=== PATIENT | male | born 1945 | race Caucasian/White ===

== ENCOUNTER → 2018-06-05 14:09 | Outpatient (POV) | payer SELFPAY | PROVIDERS: Visit Provider Dermatology | DX: Z00.00 Encounter for general adult medical examination without abnormal findings (principal) ==

== ENCOUNTER 2019-01-14 15:21 | Observation (INO) | payer MEDICARE, SELFPAY ==
[2019-01-14] VITALS (7 sets, daily range): BP systolic 88–116; BP diastolic 50–79; PULSE 55–87; RESP 15–24; TEMP 36.5–36.8; O2SAT 96–98; BMI 25.8; BMI 27.4
--- NOTE | 2019-01-14 15:40 | PC.NURSE ---
pt stating he did not pass out I just has a weak spell
--- NOTE | 2019-01-14 15:45 | HMH.EDGENADL ---
ED Disposition Clinical Impression: Renal insufficiency Syncope Qualifiers: Syncope type: unspecified Qualified Code(s): R55 - Syncope and collapse Atrial fibrillation Qualifiers: Atrial fibrillation type: unspecified Qualified Code(s): I48.91 - Unspecified atrial fibrillation Disposition: Admitted as Observation Condition on Discharge: Good Instructions: DI for Syncope in Adults (Fainting), DI for Syncope in Children (Fainting) Referrals: Francine Enrique APRN [Primary Care Provider] - - Critical Care Critical Care Time: No Attestation: On , the high probability of a clinically significant, sudden or life threatening deterioration of the following system(s) required my full and direct attention, intervention and personal management. The time I documented below is in addition to time spent performing reported procedures but includes the following listed in this critical care notation. Medical Decision Making - Medical Records Medical records reviewed: Yes: I reviewed the patient's medical records. - Ron Inquiry Pt receiving controlled substance: No Vital Signs: 01/14/19 15:23 01/14/19 15:37 01/14/19 16:17 Temperature 97.7 F Temperature Source Oral Pulse Rate [Left Radial] 57 L 55 L 56 L Respiratory Rate 16 Blood Pressure [Right Arm] 103/55 L 88/50 L 106/63 L Blood Pressure Mean [Right Arm] 71 62 77 Blood Pressure Source [Right Arm] Automatic Cuff Blood Pressure Position [Right Arm] Sitting 02 Sat by Pulse Oximetry 98 97 96 Oxygen Delivery Method Room Air 01/14/19 18:26 Temperature Temperature Source Pulse Rate [Left Radial] 87 Respiratory Rate Blood Pressure [Right Arm] 110/79 Blood Pressure Mean [Right Arm] 89 Blood Pressure Source [Right Arm] Blood Pressure Position [Right Arm] 02 Sat by Pulse Oximetry 96 Oxygen Delivery Method - Lab Data Lab results reviewed: Yes: I reviewed the patient's lab results. Lab Results 01/14/19 15:44: WBC 4.8, RBC 3.39 L, Hgb 11.0 L, Hct 31.6 L, MCV 93.4, MCH 32.4 H, MCHC 34.7, RDW 13.5, Plt Count 158, MPV 9.2, Neut % (Auto) 79.3, Lymph % (Auto) 14.0, [place] % (Auto) 5.7, Eos % (Auto) 0.8, Baso % (Auto) 0.3, Neut # (Auto) 3.8, Lymph # (Auto) 0.7, [place] # (Auto) 0.3, Eos # (Auto) 0.0, Baso # (Auto) 0.0 01/14/19 15:44: Sodium 141, Potassium 3.5, Chloride 106, Carbon Dioxide 23, Anion Gap 12.5, BUN 27 H, Creatinine 2.61 H, Estimated Creat Clear 27, Estimated GFR 24 L, Est GFR ( Amer) 29 L, Glucose 108 H, Calcium 8.2 L, Total Bilirubin 0.5, AST 33, ALT 26, Alkaline Phosphatase 108, Troponin I < 0.02, Total Protein 7.1, Albumin 3.5, Globulin 3.6 H, Albumin/Globulin Ratio 1.0 L, Plasma/Serum Alcohol 0 01/14/19 15:44: PT 11.4, INR 1.10 01/14/19 15:44: B-Natriuretic Peptide 605 H Result diagrams: 01/14/19 15:44 01/14/19 15:44 Orders (Tests/Meds): ED MEDICATIONS Discontinued Medications Generic Name Dose Route Start Last Admin Trade Name Freq PRN Reason Stop Dose Admin Sodium Chloride 500 mls @ 500 mls/hr 01/14/19 15:45 01/14/19 15:46 Sod Chlor 0.9% 500ml Bag IV 01/14/19 16:44 500 mls/hr .Q1H WILLI Administration Tetanus/Reduced Diphtheria/Acell Pertussis 0.5 ml 01/14/19 19:05 Adacel Tdap 0.5ml Syringe IM 01/14/19 19:06 .ONCE ONE ORDERS Category Date Time Status CT head/brain wo con Stat Cat Scan 01/14/19 15:42 Ordered Chest XR 2 view (NOT portable) [XR chest 2V] Stat Exams 01/14/19 15:30 Ordered Drug Screen,Urine Stat Lab 01/14/19 15:43 Ordered - ECG Data Tracing #1 I reviewed this ECG and interpreted as documented below: Normal Sinus Rhythm: No (atrial fib 56, new onset, no stemi) Medical Decision Narrative: pt refused xrays, admit d/w Dr Bustillo, regarding new onset atrial fib, renal insufficiency, syncope General Adult HPI - General Chief complaint: Syncope Stated complaint: syncope Time Seen by Provider: 06/03/19 15:45 Mode of Arrival: EMS Source of Information: Patient
--- NOTE | 2019-01-14 15:48 | ED_ITS ---
ED Disposition Clinical Impression: Renal insufficiency Syncope Qualifiers: Syncope type: unspecified Qualified Code(s): R55 - Syncope and collapse Atrial fibrillation Qualifiers: Atrial fibrillation type: unspecified Qualified Code(s): I48.91 - Unspecified atrial fibrillation Disposition: Admitted as Observation Condition on Discharge: Good Instructions: DI for Syncope in Adults (Fainting), DI for Syncope in Children (Fainting) Referrals: Francine Enrique APRN [Primary Care Provider] - - Critical Care Critical Care Time: No Attestation: On , the high probability of a clinically significant, sudden or life threatening deterioration of the following system(s) required my full and direct attention, intervention and personal management. The time I documented below is in addition to time spent performing reported procedures but includes the following listed in this critical care notation. Medical Decision Making - Medical Records Medical records reviewed: Yes: I reviewed the patient's medical records. - Ron Inquiry Pt receiving controlled substance: No Vital Signs: 01/14/19 15:23 01/14/19 15:37 01/14/19 16:17 Temperature 97.7 F Temperature Source Oral Pulse Rate [Left Radial] 57 L 55 L 56 L Respiratory Rate 16 Blood Pressure [Right Arm] 103/55 L 88/50 L 106/63 L Blood Pressure Mean [Right Arm] 71 62 77 Blood Pressure Source [Right Arm] Automatic Cuff Blood Pressure Position [Right Arm] Sitting 02 Sat by Pulse Oximetry 98 97 96 Oxygen Delivery Method Room Air 01/14/19 18:26 Temperature Temperature Source Pulse Rate [Left Radial] 87 Respiratory Rate Blood Pressure [Right Arm] 110/79 Blood Pressure Mean [Right Arm] 89 Blood Pressure Source [Right Arm] Blood Pressure Position [Right Arm] 02 Sat by Pulse Oximetry 96 Oxygen Delivery Method - Lab Data Lab results reviewed: Yes: I reviewed the patient's lab results. Lab Results 01/14/19 15:44: WBC 4.8, RBC 3.39 L, Hgb 11.0 L, Hct 31.6 L, MCV 93.4, MCH 32.4 H, MCHC 34.7, RDW 13.5, Plt Count 158, MPV 9.2, Neut % (Auto) 79.3, Lymph % (Auto) 14.0, [place] % (Auto) 5.7, Eos % (Auto) 0.8, Baso % (Auto) 0.3, Neut # (Auto) 3.8, Lymph # (Auto) 0.7, [place] # (Auto) 0.3, Eos # (Auto) 0.0, Baso # (Auto) 0.0 01/14/19 15:44: Sodium 141, Potassium 3.5, Chloride 106, Carbon Dioxide 23, Anion Gap 12.5, BUN 27 H, Creatinine 2.61 H, Estimated Creat Clear 27, Estimated GFR 24 L, Est GFR ( Amer) 29 L, Glucose 108 H, Calcium 8.2 L, Total Bilirubin 0.5, AST 33, ALT 26, Alkaline Phosphatase 108, Troponin I < 0.02, Total Protein 7.1, Albumin 3.5, Globulin 3.6 H, Albumin/Globulin Ratio 1.0 L, Plasma/Serum Alcohol 0 01/14/19 15:44: PT 11.4, INR 1.10 01/14/19 15:44: B-Natriuretic Peptide 605 H Result diagrams: 01/14/19 15:44 01/14/19 15:44 Orders (Tests/Meds): ED MEDICATIONS Discontinued Medications Generic Name Dose Route Start Last Admin Trade Name Freq PRN Reason Stop Dose Admin Sodium Chloride 500 mls @ 500 mls/hr 01/14/19 15:45 01/14/19 15:46 Sod Chlor 0.9% 500ml Bag IV 01/14/19 16:44 500 mls/hr .Q1H WILLI Administration Te
[2019-01-14 15:55] LABS: Basophils % 0.3 % (0.1-2.0); Eosinophils % 0.8 % (0.1-12.0); Hematocrit 31.6 % (42.0-52.0); Lymphocytes # 0.7 K/mm3 (0.7-4.5); Mean Corpuscular HGB Conc 34.7 g/dL (31.8-35.4); Mean Corpuscular Hemoglobin 32.4 pg (27.0-31.2); Mean Corpuscular Volume 93.4 fl (80-94); Mean Platelet Volume 9.2 fl (7.4-10.4); Monocytes # 0.3 K/mm3 (0.1-1.0); Monocytes % 5.7 % (1.7-9.3); Neutrophils # 3.8 K/mm3 (1.8-7.8); Neutrophils % 79.3 % (37.0-80.0); Platelet Count 158 K/mm3 (142-424); Red Blood Count 3.39 M/mm3 (4.60-6.20); Red Cell Distribution Width 13.5 % (11.5-17.5); White Blood Count 4.8 K/mm3 (4.8-10.8)
[2019-01-14 16:02] LABS: Prothrombin Time 11.4 seconds (9.4-11.8)
[2019-01-14 16:09] LABS: Troponin I < 0.02 ng/ml (0.00-0.06)
--- NOTE | 2019-01-14 16:12 | PC.NURSE ---
to ct per stretcher
[2019-01-14 16:13] LABS: Anion Gap 12.5 mEq/L (5-15); Aspartate Amino Transferase 33 U/L (15-37); Bilirubin,Total 0.5 mg/dL (0.2-1.0); Blood Urea Nitrogen 27 mg/dL (7-18); Calcium 8.2 mg/dL (8.5-10.1); Carbon Dioxide 23 mmol/L (21.0-32.0); Chloride 106 mmol/L (98-107); Creatinine Clearance Estimated 27 mL/min (50-200); Creatinine,Serum 2.61 mg/dL (0.70-1.30); Estimated Glomerular Filt Rate 24 ml/min (>60); GFR (African American) 29 ML/MIN (>60); Glucose 108 mg/dL (74-106); Potassium 3.5 mmoL/L (3.5-5.1); Sodium 141 mmol/L (136-145); Total Protein,Serum 7.1 gm/dL (6.4-8.2)
[2019-01-14 16:14] LABS: Albumin Level 3.5 gm/dL (3.4-5.0); Alkaline Phosphatase 108 U/L (46-116); Ethyl Alcohol 0 mg/dL (0-99); Globulin 3.6 gm/dl (1.3-3.2)
--- NOTE | 2019-01-14 16:14 | PC.NURSE ---
pt refused ct at present
[2019-01-14 16:19] LABS: Alanine Aminotransferase 26 U/L (12-78)
--- NOTE | 2019-01-14 18:00 | PC.NURSE ---
pt resting quietly
--- NOTE | 2019-01-14 18:58 | PC.NURSE ---
pt resting quietly at bedside
--- NOTE | 2019-01-14 19:58 | XR_ITS ---
XR chest 2V HISTORY: Shortness of air, new onset atrial fibrillation. ITS.REASON: SOA/new onset afib ORDERING PHYSICIAN: Kin Bustillo MD PATIENT AGE: 73 years COMPARISON: None FINDINGS: There is cardiomegaly without failure. Increased markings are present in the right lower lobe atelectasis or infiltrate. The remaining lungs are clear. There is mild wedging involving the T12 vertebral body age indeterminate. 2.5 cm gallstone. IMPRESSION: Cardiomegaly Right lower lobe infiltrate or atelectatic change. Cholelithiasis Mild wedging T12 age indeterminate
--- NOTE | 2019-01-14 20:19 | HMH.HP ---
*Admission Date: 01/14/19 *Chief complaint: Frequent falls/weakness *History of present illness: 73-year-old white male with history of hypertension, hyperlipidemia and chronic anxiety disorder who sees a nurse practitioner clinic in [place] and follows with them every month to get my Gilmer who presented to the emergency department this afternoon after falling several times today. Over the past 3 to 4 weeks he is fallen 4 or 5 times and sustained several abrasions and lacerations to his arms. He reports that he has not had any heart testing or labs done until this morning at this provider's office-received a tetanus shot today and was sent home after labs. No medication changes have been done recently. He was at [facility] in [place] today and had a syncopal episode. Requested to be brought here instead of the [facility] because we like this better. He and his note that he has been increasingly frail, problems with walking, problems with stiffness and frequent falls. He denies any history of ever being told he has atrial fibrillation or kidney disease. In the emergency department he was found to be relatively hypotensive, had elevated creatinine at 2.6, have atrial fibrillation with rate of 56 and was admitted to hospital for further diagnostic testing. [facility] History I have reviewed the patient's past medical history: Yes Medical History: Reports:: Anxiety, BPH, Depression, Hyperlipidemia, Hypertension *Have you ever received a pneumonia vaccine?: Yes *Have you received a flu vaccine this season?: Yes Other Surgeries: Yes: No Previous Surgery - *Social History Educational Level: Completed Grade School Smoking Status: Former smoker Alcohol Intake: never *Occupational Status:: other *Travel in the last 8 weeks: None - Psychiatric History Expresses thoughts of harming self/others: None Suicide Plan Description: No Plan Family Hx:: Non-contributory Review of Systems - Review of Systems Review of systems:: pertinent systems reviewed and negative unless documented below - Constitutional Reports fatigue, Reports malaise, Reports weakness, Denies anorexia, Denies body ache(s) - Eyes Denies blind spots, Denies blurry vision - ENT Reports poor balance, Reports dizziness, Denies abnormal hearing - *Cardiovascular Reports shortness of breath, Denies chest pain, Denies chest pain at rest, Denies irregular heart rhythm, Denies leg swelling - *Respiratory Reports shortness of breath with activity, Denies change in phlegm color, Denies chest congestion, Denies excessive phlegm production - *Gastrointestinal Denies abdominal pain, Denies belching, Denies change in stools, Denies coffee ground vomit, Denies difficulty swallowing - *Genitourinary Denies difficulty urinating - *Musculoskeletal Reports abnormal walking, Reports limited joint movement - *Neurologic Reports abnormal walking, Reports dizziness, Reports frequent falls, Denies loss of vision, Denies memory loss - Psychiatric Denies abnormal sleep pattern Meds Home Medications Medication Instructions Recorded Confirmed Type ALPRAZolam [Alprazolam 0.25mg 0.25 mg PO TID 01/14/19 01/14/19 History Tab] Aspirin [Aspir 81] 81 mg PO DAILY 01/14/19 01/14/19 History Cetirizine HCl [Zyrtec] 10 mg PO DAILY 01/14/19 01/14/19 History Gemfibrozil 600 mg PO DAILY 01/14/19 01/14/19 History Levothyroxine Sodium 75 mcg PO DAILY 01/14/19 01/14/19 History [Levothyroxine 75mcg (0.075mg) Tab] Lisinopril [Lisinopril 10mg Tab] 10 mg PO DAILY 01/14/19 01/14/19 History PARoxetine HCl [Paxil 20mg Tablet] 20 mg PO DAILY 01/14/19 01/14/19 History Tamsulosin HCl [Flomax 0.4mg 0.4 mg PO HS 01/14/19 01/14/19 History capsule] Verapamil HCl [Verapamil ER] 240 mg PO DAILY 01/14/19 01/14/19 History Allergies Allergy/AdvReac Type Severity Reaction Status Date / Time No Known Allergies Allergy Verified 01/14/19 15:29 Exam Vital signs and Labs for Last 24
--- NOTE | 2019-01-14 20:22 | P.HP_ITS ---
*Admission Date: 01/14/19 *Chief complaint: Frequent falls/weakness *History of present illness: 73-year-old white male with history of hypertension, hyperlipidemia and chronic anxiety disorder who sees a nurse practitioner clinic in [place] and follows with them every month to get my Gilmer who presented to the emergency department this afternoon after falling several times today. Over the past 3 to 4 weeks he is fallen 4 or 5 times and sustained several abrasions and lacerations to his arms. He reports that he has not had any heart testing or labs done until this morning at this provider's office-received a tetanus shot today and was sent home after labs. No medication changes have been done recently. He was at [facility] in [place] today and had a syncopal episode. Requested to be brought here instead of the [facility] because we like this better. He and his note that he has been increasingly frail, problems with walking, problems with stiffness and frequent falls. He denies any history of ever being told he has atrial fibrillation or kidney disease. In the emergency department he was found to be relatively hypotensive, had elevated creatinine at 2.6, have atrial fibrillation with rate of 56 and was admitted to hospital for further diagnostic testing. [facility] History I have reviewed the patient's past medical history: Yes Medical History: Reports:: Anxiety, BPH, Depression, Hyperlipidemia, Hypertension *Have you ever received a pneumonia vaccine?: Yes *Have you received a flu vaccine this season?: Yes Other Surgeries: Yes: No Previous Surgery - *Social History Educational Level: Completed Grade School Smoking Status: Former smoker Alcohol Intake: never *Occupational Status:: other *Travel in the last 8 weeks: None - Psychiatric History Expresses thoughts of harming self/others: None Suicide Plan Description: No Plan Family Hx:: Non-contributory Review of Systems - Review of Systems Review of systems:: pertinent systems reviewed and negative unless documented below - Constitutional Reports fatigue, Reports malaise, Reports weakness, Denies anorexia, Denies body ache(s) - Eyes Denies blind spots, Denies blurry vision - ENT Reports poor balance, Reports dizziness, Denies abnormal hearing - *Cardiovascular Reports shortness of breath, Denies chest pain, Denies chest pain at rest, Denies irregular heart rhythm, Denies leg swelling - *Respiratory Reports shortness of breath with activity, Denies change in phlegm color, Denies chest congestion, Denies excessive phlegm production - *Gastrointestinal Denies abdominal pain, Denies belching, Denies change in stools, Denies coffee ground vomit, Denies difficulty swallowing - *Genitourinary Denies difficulty urinating - *Musculoskeletal Reports abnormal walking, Reports limited joint movement - *Neurologic Reports abnormal walking, Reports dizziness, Reports frequent falls, Denies loss of vision, Denies memory loss - Psychiatric Denies abnormal sleep pattern Meds Home Medications Medication Instructions Recorded Confirmed Type ALPRAZolam [Alprazolam 0.25mg 0.25 mg PO TID 01/14/19 01/14/19 History Tab] Aspirin [Aspir 81] 81 mg PO DAILY 01/14/19 01/14/19 History Cetirizine HCl [Zyrtec] 10 mg PO DAILY 01/14/19 01/14/19 History Gemfibrozil 600 mg PO DAILY 01/14/19 01/14/19 History Levothyroxine Sodium 75 mcg PO DAILY 01/14/19 01/14/19 History [Levothyroxine 75mcg (0.075mg) Tab]
--- NOTE | 2019-01-14 20:39 | PC.NURSE ---
LATE ENTRY; @ 1948 ARRIVED TO FLOOR , PER BRAD, FROM ED.
[2019-01-14 23:27] LABS: Troponin I < 0.02 ng/ml (0.00-0.06)
[2019-01-15] VITALS: BP 145/78; PULSE 70; PULSE 77; RESP 18; TEMP 36.5; O2SAT 97
[2019-01-15 02:06] LABS: Troponin I < 0.02 ng/ml (0.00-0.06)
--- NOTE | 2019-01-15 03:24 | PC.NURSE ---
A&OX4. FINE TREMOR NOTED. BRUISE NOTED ON LEFT SIDE OF LOWER BACK. RIGHT FOREARM ABRASION, CLEANED SITE, DSG APPLIED. ABRASION NOTED TO LEFT ELBOW BANDAGE APPLIED. PT. HAS NOT C/O PAIN, N/V/D, DIZZINESS, OR SOB. PT. EDUCATED PRIVATE INVESTIGATOR GAETANO, PT. VERBALIZED UNDERSTANDING. PT. SPOUSE AT BEDSIDE. PT. CURRENTLY RESTING IN BED WITH EYES CLOSED. IV PATENT AND INFUSING SHOWING NO S/S OF INFILTRATION. VSS. WILL CONTINUE TO MONITOR.
[2019-01-15 04:00] VITALS: BP 166/91; PULSE 70; PULSE 79; RESP 20; TEMP 36.5; O2SAT 99
[2019-01-15 04:01] LABS: Microscopic, Urine URINE MICROSCOPIC (MICROSCOPIC)
[2019-01-15 04:05] LABS: Appearance,Urine CLEAR (Clear); Bilirubin,Urine Negative (Negative); Blood, Urine Negative (Negative); Color,Urine YELLOW (Yellow); Glucose,Urine (UA) Negative (Negative); Ketones,Urine Negative (Negative); Leukocyte Esterase,Urine Negative (Negative); Nitrate,Urine Negative (Negative); Protein,Urine Negative (Negative); Specific Gravity, Urine 1.015 (1.005-1.030); Urobilinogen,Urine 0.2 EU/dl (0.2)
[2019-01-15 05:08] VITALS: BMI 27.1
[2019-01-15 05:43] LABS: Bacteria,Urine Trace /lpf; Squamous Epithelial Cell,Urine Occasional #/hpf (0-5); WBC,Urine Occasional #/hpf (0-3)
--- NOTE | 2019-01-15 07:25 | PC.NURSE ---
REPORT GIVEN TO Richard CHVAEZ
--- NOTE | 2019-01-15 07:28 | HMH.ACPN2 ---
Internal Medicine - PN: Subj *Date: 01/15/19 *Time: 09:47 Interval history: Patient remained hemodynamically stable overnight. Blood pressure little bit more elevated but asymptomatic this morning. Patient is fixated on his Obs status and cost of medications. Counseled him to have his machine operator hop picker his medications that we may administer home meds at no cost to him. Echo performed this morning along with labs obtained, results pending. Patient did well overnight tolerating regular diet. States he is feeling better today and is adamant he does not have Parkinson's. Walked him this morning with no shuffling to his gait however he does have masked face ease. No resting tremor appreciated. Exam Vital signs and Labs for Last 24 Hours: Temp Pulse Resp BP Pulse Ox 97.7 F 79 20 166/91 H 99 01/15/19 04:00 01/15/19 04:00 01/15/19 04:00 01/15/19 04:00 01/15/19 04:00 Laboratory Results - last 24 hr 01/14/19 15:44: WBC 4.8, RBC 3.39 L, Hgb 11.0 L, Hct 31.6 L, MCV 93.4, MCH 32.4 H, MCHC 34.7, RDW 13.5, Plt Count 158, MPV 9.2, Neut % (Auto) 79.3, Lymph % (Auto) 14.0, [place] % (Auto) 5.7, Eos % (Auto) 0.8, Baso % (Auto) 0.3, Neut # (Auto) 3.8, Lymph # (Auto) 0.7, [place] # (Auto) 0.3, Eos # (Auto) 0.0, Baso # (Auto) 0.0 01/14/19 15:44: Sodium 141, Potassium 3.5, Chloride 106, Carbon Dioxide 23, Anion Gap 12.5, BUN 27 H, Creatinine 2.61 H, Estimated Creat Clear 27, Estimated GFR 24 L, Est GFR ( Amer) 29 L, Glucose 108 H, Calcium 8.2 L, Total Bilirubin 0.5, AST 33, ALT 26, Alkaline Phosphatase 108, Troponin I < 0.02, Total Protein 7.1, Albumin 3.5, Globulin 3.6 H, Albumin/Globulin Ratio 1.0 L, Plasma/Serum Alcohol 0 01/14/19 15:44: PT 11.4, INR 1.10 01/14/19 15:44: B-Natriuretic Peptide 605 H 01/14/19 23:05: Troponin I < 0.02 01/15/19 01:42: Troponin I < 0.02 01/15/19 03:05: Urine Color Yellow, Urine Appearance Clear, Urine pH 7.0, Ur Specific [place] 1.015, Urine Protein Negative, Urine Glucose (UA) Negative, Urine Ketones Negative, Urine Blood Negative, Urine Nitrate Negative, Urine Bilirubin Negative, Urine Urobilinogen 0.2, Ur Leukocyte Esterase Negative, Urine WBC Occasional, Ur Squamous Epith Cells Occasional, Urine Bacteria Trace I & O for Last 24 hours: Intake & Output 01/12/19 01/13/19 01/14/19 01/15/19 23:59 23:59 23:59 23:59 Intake Total 341 / 341 Output Total 200 / 200 600 / 600 Balance -200 / -200 -259 / -259 Weight 79.435 kg 78.557 kg Narrative: Patient appears his stated age, is in no acute respiratory distress. Vital signs noted. Patient has masked facies-and his confirms this has been more prominent over the past 3 to 4 years. Did not appreciate resting tremor this morning. When he is assisted getting up out of the bed he has a small step gait, though steady Oropharynx moist, no JVD. Lungs have good air movement. Heart rate irregularly irregular. Soft flow murmur. No gallops. Abdomen soft. No peripheral edema or clubbing. Assessment and Plan (1) New onset atrial fibrillation Current visit: Yes Status: Acute Category: Medical Code(s): I48.91 - Unspecified atrial fibrillation (2) Elevated brain natriuretic peptide (BNP) level Current visit: Yes Status: Acute Category: Medical Code(s): R79.89 - Other specified abnormal findings of blood chemistry (3) Parkinsonism Current visit: Yes Status: Acute Category: Medical Code(s): G20 - Parkinson's disease (4) Renal insufficiency Current visit: Yes Status: Acute Category: Medical Code(s): N28.9 - Disorder of kidney and ureter, unspecified - Assessment and plan all Dx Assessment and Plan for all problems:: Renal function improving with hydration. Echocardiogram performed but results pending. Patient continues to require admission for work-up of CHF, atrial fibrillation, renal dysfunction. Instructed patient to have family machine operator hop picker medications and bring them to him. Other management pending
--- NOTE | 2019-01-15 07:49 | P.CONPHA_ITS ---
[facility] Pharmacy VTE Monitoring - Patient Demographics Admission date: 01/14/19 Report Date: 01/15/19 Time: 07:49 Allergies/Adverse Reactions: Patient Allergies acetaminophen Adverse Reaction (Verified 01/15/19 00:21) Gastrointestinal Upset Height: 1.7 m Weight: 78.557 kg Patient Problems: Current Active Problems (Updated 01/14/19 @ 20:26 by Kin Bustillo MD) Syncope (Acute) Atrial fibrillation (Acute) Renal insufficiency (Acute) New onset atrial fibrillation (Acute) Elevated brain natriuretic peptide (BNP) level (Acute) Parkinsonism (Acute) - VTE Risk Labs: VTE Related Lab Results Hgb 11.0 g/dL (14.1-18.0) L 01/14/19 15:44 Hct 31.6 % (42.0-52.0) L 01/14/19 15:44 Plt Count 158 K/mm3 (142-424) 01/14/19 15:44 PT 11.4 seconds (9.4-11.8) 01/14/19 15:44 INR 1.10 (0.9-1.1) 01/14/19 15:44 BUN 27 mg/dL (7-18) H 01/14/19 15:44 Creatinine 2.61 mg/dL (0.70-1.30) H 01/14/19 15:44 Estimated Creat Clear 27 mL/min (50-200) 01/14/19 15:44 Was VTE Risk Assessment Performed: Yes VTE Score: 2 VTE Risk Level: Very Low Risk - Prophylaxis VTE Prophylaxis Ordered?: Yes Types of VTE Prophylaxis: TEDS Knee High Location of Applied Device: Bilateral Lower Extremeties - VTE Diagnosis Confirmed Treatment or plan recommended: Continue Current Treatment
[2019-01-15 08:00] VITALS: BP 146/81; PULSE 80; PULSE 86; RESP 16; TEMP 36.9; O2SAT 98
[2019-01-15 08:47] LABS: Anion Gap 16.2 mEq/L (5-15); Blood Urea Nitrogen 23 mg/dL (7-18); Calcium 8.4 mg/dL (8.5-10.1); Carbon Dioxide 22 mmol/L (21.0-32.0); Chloride 107 mmol/L (98-107); Creatinine Clearance Estimated 36 mL/min (50-200); Creatinine,Serum 2.01 mg/dL (0.70-1.30); Estimated Glomerular Filt Rate 33 ml/min (>60); GFR (African American) 40 ML/MIN (>60); Glucose 98 mg/dL (74-106); Potassium 3.2 mmoL/L (3.5-5.1); Sodium 142 mmol/L (136-145)
--- NOTE | 2019-01-15 09:00 | US_ITS ---
US Kidney CLINICAL INDICATION: Acute renal failure ITS.REASON: RED ORDERING PHYSICIAN: Kin Bustillo MD PATIENT AGE: 73 years Comparison: None FINDINGS: The right kidney is 10 x 5 x 7 cm. The left kidney is 11 x 5 x 7 cm. No hydronephrosis. There is some minimal thinning of the renal cortex but unremarkable echogenicity. No perinephric fluid collection. Incidental note is made of cholelithiasis with a thickened gallbladder wall. The common duct is normal at 4 mm. IMPRESSION: 1. No hydronephrosis. Mild renal cortical thinning. 2. Cholelithiasis with mildly thickened gallbladder wall
[2019-01-15 09:17] LABS: Thyroid Stimulating Hormone 4.03 uIU/ml (0.358-3.740)
[2019-01-15 09:26] LABS: Basophils % 0.4 % (0.1-2.0); Eosinophils # 0.1 K/mm3 (0.0-0.4); Eosinophils % 1.6 % (0.1-12.0); Hematocrit 32.7 % (42.0-52.0); Hemoglobin 11.7 g/dL (14.1-18.0); Lymphocytes # 0.7 K/mm3 (0.7-4.5); Lymphocytes % 18.7 % (10-50); Mean Corpuscular HGB Conc 35.7 g/dL (31.8-35.4); Mean Corpuscular Volume 92.6 fl (80-94); Mean Platelet Volume 7.6 fl (7.4-10.4); Monocytes # 0.2 K/mm3 (0.1-1.0); Monocytes % 5.4 % (1.7-9.3); Neutrophils # 2.6 K/mm3 (1.8-7.8); Neutrophils % 73.8 % (37.0-80.0); Platelet Count 135 K/mm3 (142-424); Red Blood Count 3.53 M/mm3 (4.60-6.20); Red Cell Distribution Width 13.3 % (11.5-17.5); White Blood Count 3.6 K/mm3 (4.8-10.8)
--- NOTE | 2019-01-15 09:27 | HMH.PHAINT ---
MEDICATION RECONCILIATION COMPLETED ON PATIENT USING EXTERNAL FILL HISTORY FROM PHARMACY. -JAMES SADLER, ISAIASD
--- NOTE | 2019-01-15 09:37 | HMH.PTEV ---
Physical Therapy Evaluation Rehab PT IP Evaluation Start: 01/14/19 20:18 Freq: ONCE Status: Active Protocol: Document 01/15/19 09:34 ANTON (Rec: 01/15/19 09:36 [email or web address] [id number]) Subjective/History History History This is the initial IP PT evaluation for Bolivar Dent. Pt is a 73 y/o wm admitted to [facility] for falls,syncpoe, a-fib. Subjective Subjective Pt reports he feels good today and wishes to go home Rehab PT IP Eval Objective Appearance Patient Behavior Appropriate Patient Orientation Person,Place,Time Difficulty following instructions none Speech Pattern Clear,Appropriate,Soft-Spoken Ambulation Patient Able to Ambulate Yes Ambulation Observation IP General Gait Pattern Observation Wide Based Gait,Shuffling Step Ambulation Distance (feet) 40 Ambulation Assistive Device None Balance Ability to Arise Able, uses arms to help Sitting Balance Steady, safe Standing Balance Steady, wide stance Dynamic Sitting Balance Ability Normal Dynamic Standing Balance Ability Fair Transfers Bed Transfer Ability Independent Chair Transfer Ability Independent Sit to Stand Bed Transfer Ability Independent Sit to Stand Chair Transfer Ability Independent ROM All Extremities PT ROM Status WFL MMT All Extremities PT MMT WFL Rehab PT IP prob,goals,plan Problems Date of Evaluation: 01/15/19 Rehab Potential Rehab Potential Innapropriate for Skilled Therapy Equipment Needs Assistive Devices None / NA Discharge Plan PT Discharge Plan dc pt to home once medically stable G -code Required Yes Eval Complexity Eval Charge Codes 80904 - Low Complexity G Codes PT Current Status Mobility PT Current Status Modifier CI-At least 1% but less than 20% impaired, limited or restricted PT Goal Status Mobility PT Goal Status Modifer CI-At least 1% but less than 20% impaired, limited or restricted PHYSICIAN CERTIFICATION: I certify the specified therapy services for Bolivar Dent are required, authorized, and reviewed every 30 days.
--- NOTE | 2019-01-15 10:27 | HMH.OTEV ---
OT Inpatient Evaluation Rehab OT IP Evaluation Start: 01/14/19 20:18 Freq: ONCE Status: Complete Protocol: Document 01/15/19 09:36 TFRY (Rec: 01/15/19 09:39 TFRY [id number]) Rehab OT IP Assessment Subjective History This is a 73 year old male that was admitted to the hospital after passing out in [facility]. Patient reports living at home with his independently prior to admission. Objective Upper Extremity Gross ROM WFL Bed Mobility bed mobility - supine/sit Assist Level Independent Transfer Training Sit/Stand/Step Transfer Assist Level Contact Guard/Hand Hold Chair Transfer Ability Contact Guard/Hand Hold Chair Transfer Technique Sit to/from Ambulatory Chair Transfer Assistive Devices None Self care skills uses utensils to feed self Feeding Ability Independent Lower Body Dressing Ability Standby Assistance Upper Body Dressing Ability Independent decrease in endurance No Rehab OT IP prob,goals,plan Problems Date of Evaluation: 01/15/19 Rehab Potential Rehab Potential Innapropriate for Skilled Therapy Discharge Plan OT Discharge Plan Patient to return home with . Patient at his baseline . Eval Complexity Eval Charge Codes 84386 - Low Complexity G Codes G -code Required Yes OT Current Status Self Care OT Current Status Modifier CI-At least 1% but less than 20% impaired, limited or restricted OT Goal Status Self Care OT Goal Status Modifier CI-At least 1% but less than 20% impaired, limited or restricted PHYSICIAN CERTIFICATION: I certify the specified therapy services for Bolivar Dent are required, authorized, and reviewed every 30 days.
[2019-01-15 12:00] VITALS: PULSE 90
--- NOTE | 2019-01-15 15:23 | HMH.CNCARD ---
History of Present Illness Consult date: 01/15/19 Requesting physician: Kin Bustillo Consult reason: atrial fibrillation, congestive heart failure Chief complaint: SOA Additional Medical History:: 1. Atrial fibrillation, newly diagnosed, 01/2019 A. Poor candidate for anticoagulation despite elevated chads score due to recent history of recurrent falling 2. Cardiomyopathy by echocardiogram, 01/2019 3. Moderate to severe MR by echocardiogram 01/2019 4. Congestive heart failure, 01/2019 5. Hypertension 6. Hyperlipidemia 7. Hypothyroidism, on replacement 8. Chronic anxiety A. chronic Xanax use 9. Parkinson's disease History of present illness: 73-year-old white male with history of hypertension, hyperlipidemia and chronic anxiety disorder who sees a nurse practitioner clinic in [place] and follows with them every month to get my Gilmer who presented to the emergency department this afternoon after falling several times today. Over the past 3 to 4 weeks he is fallen 4 or 5 times and sustained several abrasions and lacerations to his arms. He reports that he has not had any heart testing or labs done until this morning at this provider's office-received a tetanus shot today and was sent home after labs. No medication changes have been done recently. He was at [facility] in [place] today and had a syncopal episode. Requested to be brought here instead of the [facility] because we like this better. He and his note that he has been increasingly frail, problems with walking, problems with stiffness and frequent falls. He denies any history of ever being told he has atrial fibrillation or kidney disease. In the emergency department he was found to be relatively hypotensive, had elevated creatinine at 2.6, have atrial fibrillation with rate of 56 and was admitted to hospital for further diagnostic testing The above per Dr. Bustillo Patient is somewhat of a difficult historian and states his main reason for being here is shortness of breath and recent falls. He denies being a diabetic or history of smoking. EKG is atrial fibrillation with controlled ventricular response with possible inferior and lateral infarcts. Echocardiogram today shows ejection fraction of 40-45% with at least moderate mitral regurgitation, left atrial and left ventricular enlargement. Cardiology consulted for new onset A. fib, cardiomyopathy and congestive heart failure. Patient was on diltiazem therapy upon admission, this has been discontinued. [facility] History Medical History: Reports:: Anxiety, BPH, Depression, Hyperlipidemia, Hypertension Denies:: Cancer, Diabetes Mellitus Type 1, Diabetes Mellitus Type 2, MRSA *Have you ever received a pneumonia vaccine?: No *Have you received a flu vaccine this season?: No Other Surgeries: Yes: No Previous Surgery, Other (VASECTOMY) Amputation: No Fractures: No - *Social History Educational Level: Completed High School Smoking Status: Never smoker Alcohol Intake: never *Occupational Status:: retired Housing: house Household Members: spouse *Travel in the last 8 weeks: None - Psychiatric History Expresses thoughts of harming self/others: None Suicide Plan Description: No Plan Pschychiatric History:: Reports:: Anxiety, Depression Family Hx:: Hypertension Meds Home Medications Medication Instructions Recorded Confirmed Type Aspirin [Aspir 81] 81 mg PO DAILY 01/14/19 01/15/19 History Gemfibrozil 600 mg PO BID 01/14/19 01/15/19 History Levothyroxine Sodium 75 mcg PO DAILY 01/14/19 01/14/19 History [Levothyroxine 75mcg (0.075mg) Tab] Lisinopril [Lisinopril 10mg Tab] 10 mg PO DAILY 01/14/19 01/15/19 History PARoxetine HCl [Paxil 20mg Tablet] 20 mg PO DAILY 01/14/19 01/14/19 History Tamsulosin HCl [Flomax 0.4mg 0.4 mg PO HS 01/14/19 01/14/19 History capsule] Verapamil HCl [Verapamil ER] 240 mg PO BID 01/14/19 01/15/19 History ALPRAZolam [Xanax 0.5mg tab] 0.5 mg PO BID 01/15/19 0
[2019-01-15 16:00] VITALS: BP 128/72; PULSE 82; PULSE 90; RESP 18; TEMP 36.7; O2SAT 96
--- NOTE | 2019-01-15 16:30 | PC.NURSE ---
CA Round done. Ice water given, trash taken out. Family at bedside.
--- NOTE | 2019-01-15 19:58 | CA_ITS ---
PROCEDURE: 2-D M-mode and color Doppler study INDICATIONS FOR THE TEST: Chest pain COPD Heart Murmur Tobacco Smoking Palpitations Fatigue Syncope Edema Hypertension+Diabetes Mellitus Rheumatic Fever SOB CAMPOS Obesity Hyperlipidemia+ Family History HD Additional History AFIB PATIENT INFORMATION HEIGHT:67 WEIGHT:165 GENDER: Male B/P:113/67 2-D/M-MODE INTERPRETATION: 2-D MEASUREMENTS OBSERVED VALUES IN CMS Right Ventricular Dimension (RVDd) 3.2 Interventricular Septum (Thickness)(IVsd) 1.5 Left Ventricular Internal Dimensions(LVIDd) 5.1 Left Ventricular Posterior Wall (Thickness)(LVPWd) 1.2 Aortic Root 3.8 Aortic Cusp Separation 2.2 Left Atrial Dimensions (LAD) 4.3 2D 1. Left atrium is moderately enlarged, left ventricle is normal size, mild concentric left ventricular hypertrophy, borderline left ventricular systolic function, visually estimated ejection fraction 45% with no obvious regional wall motion abnormality, endocardial surfaces are poorly visualized. 2. The right atrium and right ventricle are mildly enlarged with normal contractility. 3. The aortic valve is thickened and calcified leaflet continue to display mobility. 4. The mitral and tricuspid valve leaflets are minimally thickened. 5. The pulmonic valve is poorly visualized. 6. No significant pericardial effusion noted. DOPPLER INTERROGATION: Doppler interrogation of the aortic, mitral and tricuspid valvular presence of moderate mitral, mild aortic and mild tricuspid regurgitation, tricuspid regurgitation jet velocity is inadequate for calculation of the left ventricle is pressure, diastolic parameters are inconclusive. There is tall T-wave with restrictive filling pattern suggestive of increased left ventricular end-diastolic pressure. CONCLUSION: 1. Moderately enlarged left atrium, normal left ventricular size, mild concentric left ventricular hypertrophy, borderline left ventricular systolic function, visually estimated ejection fraction 45% with no obvious regional wall motion abnormality, endocardial surfaces are poorly visualized, Doppler evidence of raised left ventricular end-diastolic pressure. 2. Mild aortic, moderate mitral and mild tricuspid regurgitation 3. No significant pericardial effusion noted.
[2019-01-15 20:00] VITALS: BP 162/90; PULSE 100; PULSE 94; RESP 17; TEMP 36.9; O2SAT 96
[2019-01-16] VITALS (24 sets, daily range): BP systolic 130–190; BP diastolic 72–102; PULSE 70–90; RESP 16–20; TEMP 36.3–37.1; O2SAT 96–100; BMI 25.9
--- NOTE | 2019-01-16 02:40 | PC.NURSE ---
A&OX3, SPEECH IS CLEAR AND APPROPRIATE BUT MILD IMPAIRMENT NOTED WITH COMPREHENSION OF TEACHINGS AT TIMES AND PT IS DELAYED WITH SPEECH/CONVERSATION, THIS IS PT'S BASELINE. ATTEMPTED TO OBTAIN CONSENT FOR CARDIAC CATH SCHEDULED FOR 01/16, UNABLE TO ALLOW PT TO SIGN CONSENT R/T PT'S LACK OF KNOWLEDGE OF PROCEDURE RISK AND BENEFITS. PT STATED I WANT TO TALK THE DOCTOR MORE TOMORROW. LUNG CLEAR T/O AUSCULTATION, TOLERATED RA WELL. ABDOMEN NONDISTENDED BOWEL SOUNDS IN ALL QUADS, SOFT AND NONTENDER PER PALPATION. PULSES +2, CAP REFILL <3SEC. MILD TREMORS NOTED IN BILAT HANDS ON ASSESSMENT. UNSTEADY GAIT, ASSIST X1 WITH ADLS THIS SHIFT, TOLERATED WELL. PT DID RECEIVE A BATH AND BILAT WRISTS AND GROIN AREAS CLIPPED FOR ANTICIPATION OF CARDIAC CATH. NSR WITH FIRST DEGREE NOTED PER OFFICE MACHINES WIRER. VSS. WILL CONTINUE TO MONITOR.
--- NOTE | 2019-01-16 07:04 | SW/DCPLANNER ---
WENT IN WITH DR ROBLES TO MAKE ROUNDS ON : PATIENT STATED HE WANTED TO GO HOME AND IT WAS HARD FOR HIM AND HIS TO UNDERSTAND THAT HE WAS IN AN OBSERVATION BED AND IN ORDER FOR HIM NOT TO BE CHARGED FOR MEDS...HIS LEFT TO GO FRAUD EXAMINER A PRESCRIPTION IN [place] WITH ANTICIPATION HE WAS GOING TO DISCHARGE LATER IN THE DAY.. PATIENT ENDED UP STAYING AND IS SCHEDULED FOR A HEART CATH TODAY...DISCHARGE PLAN IS FOR HIM TO RETURN HOME AFTER HE HAS BEEN MEDICALLY CLEARED...ANY DISCHARGE PLANNING THAT IS ORDERED WILL BE SET UP IF THERE IS A NEED...
--- NOTE | 2019-01-16 07:11 | IR_ITS ---
CARDIAC CATHETERIZATION DATE OF CATHETERIZATION:01/16/2019 2:40 PM PROCEDURES: 1. Left heart catheterization 2. Left ventriculogram 3. Selective coronary angiogram 4. Catheter placement in the ascending aorta 5. Ascending aortogram 6. Catheter placement transverse aorta 7. Transverse aortography 8. Catheter placement in the descending aorta 9. Ascending aorta and abdominal aortogram INDICATION FOR TEST: 1. Syncope 2. Abnormal echocardiogram 3. Left ventricular dysfunction 4. Ascending aortic dissection 5. 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 COMPLICATIONS: None ESTIMATED BLOOD LOSS: Less than 10 ml. TECHNIQUE: One percent lidocaine used to anesthetize the right anterior aspect of the wrist. The right radial artery was accessed via the Seldinger technique. A 6 Taj[place] sheath was placed in the right radial artery. 2.5 mg of verapamil, 800 mcg of nitroglycerin, 1mg Lidocaine and 5000 U Heparin were given through the arterial sheath. The trap catheter was initially placed in the descending aorta. Angiography was performed and there was abnormal blood flow which actually appeared to be traveling in a retrograde manner. I was concerned a dissection was present therefore the catheter was pulled back and a 6 [place] pigtail catheter was placed in the ascending aorta where aortography was performed. The descending aorta was dilated and aneurysmal therefore the catheter was pulled back into the transverse aorta were transverse aortography was performed. Because there appeared to be some retrograde flow in the aorta I was concerned about an aortocaval fistula therefore the pigtail catheter was placed in the descending aorta and ascending aortography was performed. The trap catheter was used to perform left heart catheterization left ventriculogram and selective coronary angiography. At the end of the procedure the apparatus was removed the sheath was removed good hemostasis was achieved using TR banding patient transferred the postop holding area in stable condition ANGIOGRAPHIC RESULTS: 1. The left main artery has an ostial 20% stenosis 2. The left anterior descending artery has mild proximal luminal irregularities with mid vessel tendon 20% stenoses 3. The circumflex artery is nondominant yet still large giving rise to multiple obtuse marginal arteries all of which have 10-20% stenoses 4. The right coronary artery is a large dominant vessel and has proximal and mid vessel 20 and 30% stenoses with mild vascular ectasia throughout the entire vessel. 5. The JAMES ventriculogram reveals reduced at 45% 6. The left ventricular end-diastolic pressure 25 mmHg 7. The ascending aorta is aneurysmal with no evidence of dissection. 8. The transverse aorta gives rise to the brachiocephalic artery left common carotid artery and left subclavian artery. The transverse aorta and the 3 main branches are all dilated with no angiographic evidence of dissection 9. The descending aorta is dilated with no evidence of dissection is rise to the celiac artery. Bilateral renal arteries are singular with mild 20% stenoses. The distal abdominal aorta tapers to normal caliber with no evidence of dissection IMPRESSION: 1. Nonflow limiting coronary artery disease as described above 2. Used ejection fraction most consistent with hypertensive cardiomyopathy 3. Elevated LVEDP most consistent with hypertensive heart disease 4. 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 Treatment of hypertensive heart and vascular disease 2. Control of hypertension 3. Patient will do well wi
--- NOTE | 2019-01-16 07:13 | PC.NURSE ---
REPORT GIVEN TO Katie WESLEY
[2019-01-16 07:36] LABS: Basophils % 0.4 % (0.1-2.0); Eosinophils # 0.1 K/mm3 (0.0-0.4); Eosinophils % 1.5 % (0.1-12.0); Hematocrit 40.1 % (42.0-52.0); Lymphocytes # 1.1 K/mm3 (0.7-4.5); Lymphocytes % 23.1 % (10-50); Mean Corpuscular HGB Conc 32.5 g/dL (31.8-35.4); Mean Corpuscular Hemoglobin 32.2 pg (27.0-31.2); Mean Corpuscular Volume 99.3 fl (80-94); Mean Platelet Volume 8.1 fl (7.4-10.4); Monocytes # 0.3 K/mm3 (0.1-1.0); Monocytes % 6.2 % (1.7-9.3); Neutrophils # 3.3 K/mm3 (1.8-7.8); Neutrophils % 68.8 % (37.0-80.0); Platelet Count 153 K/mm3 (142-424); Red Blood Count 4.03 M/mm3 (4.60-6.20); Red Cell Distribution Width 13.6 % (11.5-17.5); White Blood Count 4.8 K/mm3 (4.8-10.8)
[2019-01-16 07:39] LABS: Anion Gap 15.9 mEq/L (5-15); Blood Urea Nitrogen 22 mg/dL (7-18); Calcium 8.8 mg/dL (8.5-10.1); Carbon Dioxide 23 mmol/L (21.0-32.0); Chloride 103 mmol/L (98-107); Creatinine Clearance Estimated 47 mL/min (50-200); Creatinine,Serum 1.49 mg/dL (0.70-1.30); Estimated Glomerular Filt Rate 46 ml/min (>60); GFR (African American) 56 ML/MIN (>60); Glucose 85 mg/dL (74-106); Sodium 139 mmol/L (136-145)
[2019-01-16 07:54] LABS: Potassium 2.9 mmoL/L (3.5-5.1)
--- NOTE | 2019-01-16 08:38 | HMH.ACPN2 ---
Internal Medicine - PN: Subj *Date: 01/16/19 *Time: 08:38 Interval history: Patient did well overnight, no chest pain. Has been up and around, feels much less dizzy. Good urine output. Labs reviewed. Exam Vital signs and Labs for Last 24 Hours: Temp Pulse Resp BP Pulse Ox 97.8 F 83 18 165/84 H 96 01/16/19 04:00 01/16/19 04:00 01/16/19 04:00 01/16/19 04:00 01/16/19 04:00 Laboratory Results - last 24 hr 01/15/19 03:05: Urine Eosinophils Rare 01/15/19 08:13: WBC 3.6 L, RBC 3.53 L, Hgb 11.7 L, Hct 32.7 L, MCV 92.6, MCH 33.0 H, MCHC 35.7 H, RDW 13.3, Plt Count 135 L, MPV 7.6, Neut % (Auto) 73.8, Lymph % (Auto) 18.7, [place] % (Auto) 5.4, Eos % (Auto) 1.6, Baso % (Auto) 0.4, Neut # (Auto) 2.6, Lymph # (Auto) 0.7, [place] # (Auto) 0.2, Eos # (Auto) 0.1, Baso # (Auto) 0.0 01/15/19 08:13: Sodium 142, Potassium 3.2 L, Chloride 107, Carbon Dioxide 22, Anion Gap 16.2 H, BUN 23 H, Creatinine 2.01 H D, Estimated Creat Clear 36, Estimated GFR 33 L, Est GFR ( Amer) 40 L D, Glucose 98, Calcium 8.4 L 01/15/19 08:13: TSH 4.03 H 01/16/19 07:15: WBC 4.8 D, RBC 4.03 L, Hgb 13.0 L D, Hct 40.1 L, MCV 99.3 H, MCH 32.2 H, MCHC 32.5, RDW 13.6, Plt Count 153, MPV 8.1, Neut % (Auto) 68.8, Lymph % (Auto) 23.1, [place] % (Auto) 6.2, Eos % (Auto) 1.5, Baso % (Auto) 0.4, Neut # (Auto) 3.3, Lymph # (Auto) 1.1, [place] # (Auto) 0.3, Eos # (Auto) 0.1, Baso # (Auto) 0.0 01/16/19 07:15: Sodium 139, Potassium 2.9 L*, Chloride 103, Carbon Dioxide 23, Anion Gap 15.9 H, BUN 22 H, Creatinine 1.49 H D, Estimated Creat Clear 47, Estimated GFR 46 L, Est GFR ( Amer) 56 L D, Glucose 85, Calcium 8.8 I & O for Last 24 hours: Intake & Output 01/13/19 01/14/19 01/15/19 01/16/19 11:59 11:59 11:59 11:59 Intake Total 341 / 341 723 / 723 Output Total 800 / 800 1325 / 1325 Balance -459 / -459 -602 / -602 Weight 173 lb 3 oz 165 lb 9 oz Narrative: Patient is awake, alert, heart rate irregular but rate controlled. Lungs are clear. Abdomen soft, minimal edema. No change in neurologic rigidity. Assessment and Plan (1) New onset atrial fibrillation Current visit: Yes Status: Acute Category: Medical Code(s): I48.91 - Unspecified atrial fibrillation (2) Elevated brain natriuretic peptide (BNP) level Current visit: Yes Status: Acute Category: Medical Code(s): R79.89 - Other specified abnormal findings of blood chemistry (3) Parkinsonism Current visit: Yes Status: Acute Category: Medical Code(s): G20 - Parkinson's disease (4) Renal insufficiency Current visit: Yes Status: Acute Category: Medical Code(s): N28.9 - Disorder of kidney and ureter, unspecified Slightly improving. Patient's previous provider had not done renal labs in the last 3 to 4 years so we have no baseline. 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 Medicine adjustment as noted. Possible discharge home tomorrow with low-dose beta-blockers. (6) Mitral regurgitation Current visit: Yes Status: Acute Category: Medical Code(s): I34.0 - Nonrheumatic mitral (valve) insufficiency (7) Hypokalemia Current visit: Yes Status: Acute Category: Medical Code(s): E87.6 - Hypokalemia Replace cautiously, watch tomorrow
[2019-01-16 10:09] LABS: Chol/HDL Ratio 5.6 (1-3.5); Cholesterol 151 mg/dL (140-200); HDL Cholesterol 27 mg/dL (27-67); LDL Cholesterol 106 mg/dL (0-130); Triglycerides 88 mg/dL (30-200); VLDL Cholesterol 18 mg/dL (0-40)
--- NOTE | 2019-01-16 10:09 | HMH.PNCARD ---
Subjective Date: 01/16/19 Time: 09:30 Principal diagnosis: afib, chf Interval history: This is a 73-year-old white gentleman who was admitted to the hospital after falling multiple times over the past 3 to 4 weeks. The patient did sustain several abrasions and lacerations. When the patient was admitted to the hospital he was found to be in atrial fibrillation and had an acute kidney injury with a creatinine of 2.6. His echocardiogram revealed an ejection fraction of 45% with moderate mitral regurgitation. Cardiology was consulted due to the atrial fibrillation, cardiomyopathy and congestive heart failure. Diltiazem has been discontinued due to his cardiomyopathy. He has been started on carvedilol which he is tolerating well. This morning he denies any chest pain or pressure. He denies any shortness of breath or edema. He denies any fever, chills, nausea, vomiting, diarrhea, PND or orthopnea. The patient is scheduled to undergo left cardiac catheterization today due to his new onset cardiomyopathy to make sure that this is not ischemically mediated. Exam Vital signs and Labs for Last 24 Hours: Temp Pulse Resp BP Pulse Ox 97.4 F L 83 16 182/94 H 98 01/16/19 08:00 01/16/19 08:00 01/16/19 08:00 01/16/19 08:00 01/16/19 08:00 Laboratory Results - last 24 hr 01/15/19 03:05: Urine Eosinophils Rare 01/16/19 07:15: WBC 4.8 D, RBC 4.03 L, Hgb 13.0 L D, Hct 40.1 L, MCV 99.3 H, MCH 32.2 H, MCHC 32.5, RDW 13.6, Plt Count 153, MPV 8.1, Neut % (Auto) 68.8, Lymph % (Auto) 23.1, [place] % (Auto) 6.2, Eos % (Auto) 1.5, Baso % (Auto) 0.4, Neut # (Auto) 3.3, Lymph # (Auto) 1.1, [place] # (Auto) 0.3, Eos # (Auto) 0.1, Baso # (Auto) 0.0 01/16/19 07:15: Sodium 139, Potassium 2.9 L*, Chloride 103, Carbon Dioxide 23, Anion Gap 15.9 H, BUN 22 H, Creatinine 1.49 H D, Estimated Creat Clear 47, Estimated GFR 46 L, Est GFR ( Amer) 56 L D, Glucose 85, Calcium 8.8 I & O for Last 24 hours: Intake & Output 01/13/19 01/14/19 01/15/19 01/16/19 23:59 23:59 23:59 23:59 Intake Total 341 / 341 723 / 723 Output Total 200 / 200 825 / 1175 1100 / 1100 Balance -200 / -200 -484 / -834 -377 / -377 Weight 175 lb 2 oz 173 lb 3 oz 165 lb 9 oz Narrative: His telemetry strip shows atrial fibrillation with a rate of 89. Echocardiogram shows: CONCLUSION: 1. Moderately enlarged left atrium, normal left ventricular size, mild concentric left ventricular hypertrophy, borderline left ventricular systolic function, visually estimated ejection fraction 45% with no obvious regional wall motion abnormality, endocardial surfaces are poorly visualized, Doppler evidence of raised left ventricular end-diastolic pressure. 2. Mild aortic, moderate mitral and mild tricuspid regurgitation 3. No significant pericardial effusion noted. - *Routine HEENT Exam Head: Present: normocephalic, atraumatic Eye: Present: EOMI, PERRL ENT: Present: mucous membranes moist - *Routine Neck Exam Present: supple, full ROM. Absent: JVD, carotid bruit, lymphadenopathy - *Routine Respiratory Exam Present: decreased breath sounds, CTA bilaterally - *Routine Cardiovascular Exam Present: Normal S1, Normal S2, murmur, irregularly irregular - *Routine Abdominal Exam Present: soft, normoactive bowel sounds. Absent: tenderness, distended - *Routine Extremities Exam Present: full ROM, pulses intact, normal capillary refill. Absent: cyanosis, clubbing, edema - *Routine Skin Exam Present: intact, warm. Absent: erythema, rash - *Routine Neurological Exam Present: alert, oriented X3, CN II-XII intact. 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
--- NOTE | 2019-01-16 13:10 | DIET.NUTRFU ---
nutritional assessment completed by student radha under my supervision. Written and verbal teaching on low sodium, high potassium foods.
--- NOTE | 2019-01-16 19:14 | PC.NURSE ---
report given to brianne
[2019-01-17] VITALS: BP 146/90; PULSE 70; PULSE 80; RESP 16; TEMP 37.1; O2SAT 97
[2019-01-17 04:00] VITALS: BP 156/89; PULSE 80; PULSE 85; RESP 18; TEMP 37.1; O2SAT 97
--- NOTE | 2019-01-17 04:36 | PC.NURSE ---
pt has rested well this shift. Pt is A&Ox4, with delayed speech, this is pts baseline. Heart Cath site is covered with a 2x2 and tegaderm, CDI. Pt. as been to bathroom multiple times w/o c/o dizziness. VSS. will cont. to monitor.
[2019-01-17 05:43] VITALS: BMI 25.9
[2019-01-17 07:51] VITALS: BP 148/92; PULSE 93; RESP 17; TEMP 36.8; O2SAT 100
[2019-01-17 07:53] LABS: Anion Gap 17.8 mEq/L (5-15); Blood Urea Nitrogen 21 mg/dL (7-18); Calcium 8.4 mg/dL (8.5-10.1); Carbon Dioxide 20 mmol/L (21.0-32.0); Chloride 103 mmol/L (98-107); Creatinine Clearance Estimated 60 mL/min (50-200); Creatinine,Serum 1.16 mg/dL (0.70-1.30); Estimated Glomerular Filt Rate 62 ml/min (>60); GFR (African American) 75 ML/MIN (>60); Glucose 84 mg/dL (74-106); Potassium 3.8 mmoL/L (3.5-5.1); Sodium 137 mmol/L (136-145)
[2019-01-17 08:00] VITALS: PULSE 100
--- NOTE | 2019-01-17 09:00 | HMH.DCSUM ---
General - General Admission date:: 01/14/19 Discharge date: 01/17/19 HPI HPI: 73-year-old white male with history of hypertension, hyperlipidemia and chronic anxiety disorder who sees a nurse practitioner clinic in [place] and follows with them every month to get my Gilmer who presented to the emergency department this afternoon after falling several times today. Over the past 3 to 4 weeks he is fallen 4 or 5 times and sustained several abrasions and lacerations to his arms. He reports that he has not had any heart testing or labs done until this morning at this provider's office-received a tetanus shot today and was sent home after labs. No medication changes have been done recently. He was at [facility] in [place] today and had a syncopal episode. Requested to be brought here instead of the [facility] because we like this better. He and his note that he has been increasingly frail, problems with walking, problems with stiffness and frequent falls. He denies any history of ever being told he has atrial fibrillation or kidney disease. In the emergency department he was found to be relatively hypotensive, had elevated creatinine at 2.6, have atrial fibrillation with rate of 56 and was admitted to hospital for further diagnostic testing. Hospital Course Hospital Course: Patient was admitted to acute care and telemetry was placed. He was rehydrated with IVF's and creatinine returned to normal. Cardiology was consulted who ordered echocardiogram. He was found to have mild-moderate valve regurgitations with reduced EF 45%. He was taken for C which showed normal coronaries with confirmed systolic heart failure. Beta blockers were initiated which he has tolerated well. He remains in atrial fib with controlled rate. He was placed on aspirin but anticoagulants were not initiated d/t his increased risk of falls. Exam revealed Parkison's Disease and sinemet was initiated. He reports stiffness has improved and he is ambulating without dizziness or shortness of breath. He feels well today and desires to go home. Discharge home on sinemet and coreg. Continue aspirin. See med rec for complete list. FU with Dr. Bustillo in [place] in 5 days. Objective Vital signs: Temp Pulse Resp BP Pulse Ox 98.3 F 100 H 17 148/92 H 100 01/17/19 07:51 01/17/19 08:00 01/17/19 07:51 01/17/19 07:51 01/17/19 07:51 Narrative: Alert and oriented x3. Flat affect. Rate and rhythm irregular. No LE edema. Lung sounds clear and equal. Abdomen soft and nontender. Right radial cath site unremarkable. Pulses 2+ bilaterally. Results Labs on day of discharge: Labs from last 24 hours 01/17/19 01/16/19 06:43 07:15 Sodium 137 Potassium 3.8 D Chloride 103 Carbon Dioxide 20 L Anion Gap 17.8 H BUN 21 H Creatinine 1.16 D Estimated Creat Clear 60 Estimated GFR 62 Est GFR ( Amer) 75 D Glucose 84 Calcium 8.4 L Triglycerides 88 Cholesterol 151 LDL Cholesterol 106 VLDL Cholesterol 18 HDL Cholesterol 27 Cholesterol/HDL Ratio 5.6 H DS: Diagnosis - Discharge Diagnosis (1) Cardiomyopathy Status: Acute (2) Systolic congestive heart failure due to valvular disease Status: Acute (3) New onset atrial fibrillation Status: Acute (4) Elevated brain natriuretic peptide (BNP) level Status: Acute (5) Parkinsonism Status: Acute (6) Renal insufficiency Status: Acute (7) Mitral regurgitation Status: Acute (8) Hypokalemia Status: Acute Discharge Plan - Patient Discharge Instructions ACTIVITY: Continue current activity DIET: continue same diet Patient Instructions: DI for Syncope in Adults (Fainting), DI for Heart Failure, DI for Cardiac Catheterization, DI for Atrial Fibrillation, DI for Surgical Site Infection, High-Potassium Diet, Low-Sodium Diet - Follow up Plan Follow up with: Kin Bustillo MD [Staff Physician] -
--- NOTE | 2019-01-17 09:03 | P.DS_ITS ---
General - General Admission date:: 01/14/19 Discharge date: 01/17/19 HPI HPI: 73-year-old white male with history of hypertension, hyperlipidemia and chronic anxiety disorder who sees a nurse practitioner clinic in [place] and follows with them every month to get my Gilmer who presented to the emergency department this afternoon after falling several times today. Over the past 3 to 4 weeks he is fallen 4 or 5 times and sustained several abrasions and lacerations to his arms. He reports that he has not had any heart testing or labs done until this morning at this provider's office-received a tetanus shot today and was sent home after labs. No medication changes have been done recently. He was at [facility] in [place] today and had a syncopal episode. Requested to be brought here instead of the [facility] because we like this better. He and his note that he has been increasingly frail, problems with walking, problems with stiffness and frequent falls. He denies any history of ever being told he has atrial fibrillation or kidney disease. In the emergency department he was found to be relatively hypotensive, had elevated creatinine at 2.6, have atrial fibrillation with rate of 56 and was admitted to hospital for further diagnostic testing. Hospital Course Hospital Course: Patient was admitted to acute care and telemetry was placed. He was rehydrated with IVF's and creatinine returned to normal. Cardiology was consulted who ordered echocardiogram. He was found to have mild-moderate valve regurgitations with reduced EF 45%. He was taken for C which showed normal coronaries with confirmed systolic heart failure. Beta blockers were initiated which he has tolerated well. He remains in atrial fib with controlled rate. He was placed on aspirin but anticoagulants were not initiated d/t his increased risk of falls. Exam revealed Parkison's Disease and sinemet was initiated. He reports stiffness has improved and he is ambulating without dizziness or shortness of b reath. He feels well today and desires to go home. Discharge home on sinemet and coreg. Continue aspirin. See med rec for complete list. FU with Dr. Bustillo in [place] in 5 days. Objective Vital signs: Temp Pulse Resp BP Pulse Ox 98.3 F 100 H 17 148/92 H 100 01/17/19 07:51 01/17/19 08:00 01/17/19 07:51 01/17/19 07:51 01/17/19 07:51 Narrative: Alert and oriented x3. Flat affect. Rate and rhythm irregular. No LE edema. Lung sounds clear and equal. Abdomen soft and nontender. Right radial cath site unremarkable. Pulses 2+ bilaterally. Results Labs on day of discharge: Labs from last 24 hours 01/17/19 01/16/19 06:43 07:15 Sodium 137 Potassium 3.8 D Chloride 103 Carbon Dioxide 20 L Anion Gap 17.8 H BUN 21 H Creatinine 1.16 D Estimated Creat Clear 60 Estimated GFR 62 Est GFR ( Amer) 75 D Glucose 84 Calcium 8.4 L Triglycerides 88 Cholesterol 151 LDL Cholesterol 106 VLDL Cholesterol 18 HDL Cholesterol 27 Cholesterol/HDL Ratio 5.6 H DS: Diagnosis - Discharge Diagnosis (1) Cardiomyopathy Status: Acute (2) Systolic congestive heart failure due to valvular disease Status: Acute (3) New onset atrial fibrillation
--- NOTE | 2019-01-17 09:52 | PC.NURSE ---
pt educated on discharge teaching and post cath care. medications reviewed. upon medication teaching luis angel galvin stated a change to continue taking lisinopril that was d/c per brandon. pt was informed of this and educated. dressing changed to right elbow
--- NOTE | 2019-01-17 09:54 | HMH.PNCARD ---
Subjective Date: 01/17/19 Time: 09:00 Principal diagnosis: cardiomyopathy Interval history: This is a 73-year-old white gentleman who was admitted to the hospital after having multiple falls over the last several weeks. The patient was found to be in atrial fibrillation as well as having an acute kidney injury. The patient echocardiogram showed some cardiomyopathy with moderate mitral regurgitation. He did undergo left cardiac catheterization yesterday which showed mild nonocclusive coronary artery disease, mild renal artery stenosis and mild dilatation of his aorta. The patient's ejection fraction was 45% his LV EDP was also elevated. The patient would benefit from beta-blockers and FRANKY inhibitors. This morning he denies any chest pain, pressure, shortness of breath or edema. He denies any fevers, chills, nausea, vomiting, diarrhea, PND or orthopnea. Exam Vital signs and Labs for Last 24 Hours: Temp Pulse Resp BP Pulse Ox 98.3 F 100 H 17 148/92 H 100 01/17/19 07:51 01/17/19 08:00 01/17/19 07:51 01/17/19 07:51 01/17/19 07:51 Laboratory Results - last 24 hr 01/16/19 07:15: Triglycerides 88, Cholesterol 151, LDL Cholesterol 106, VLDL Cholesterol 18, HDL Cholesterol 27, Cholesterol/HDL Ratio 5.6 H 01/17/19 06:43: Sodium 137, Potassium 3.8 D, Chloride 103, Carbon Dioxide 20 L, Anion Gap 17.8 H, BUN 21 H, Creatinine 1.16 D, Estimated Creat Clear 60, Estimated GFR 62, Est GFR ( Amer) 75 D, Glucose 84, Calcium 8.4 L I & O for Last 24 hours: Intake & Output 01/14/19 01/15/19 01/16/19 01/17/19 23:59 23:59 23:59 23:59 Intake Total 341 / 341 1203 / 1203 480 / 480 Output Total 200 / 200 825 / 1175 1800 / 1800 250 / 250 Balance -200 / -200 -484 / -834 -597 / -597 230 / 230 Weight 175 lb 2 oz 173 lb 3 oz 165 lb 9 oz 166 lb Narrative: [facility] showed: IMPRESSION: 1. Nonflow limiting coronary artery disease as described above 2. Used ejection fraction most consistent with hypertensive cardiomyopathy 3. Elevated LVEDP most consistent with hypertensive heart disease 4. 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 Treatment of hypertensive heart and vascular disease 2. Control of hypertension 3. Patient will do well with beta pedro therapy due to the ascending aortic aneurysm 4. Medical management - Constitutional no acute distress, average body habitus - *Routine HEENT Exam Head: Present: normocephalic, atraumatic Eye: Present: EOMI, PERRL ENT: Present: mucous membranes moist - *Routine Neck Exam Present: supple, full ROM, normal carotid upstroke. Absent: JVD, carotid bruit, lymphadenopathy - *Routine Respiratory Exam Present: CTA bilaterally - *Routine Cardiovascular Exam Present: Normal S1, Normal S2, murmur, irregularly irregular - *Routine Abdominal Exam Present: soft, normoactive bowel sounds. Absent: tenderness, distended - *Routine Extremities Exam Present: full ROM, pulses intact, normal capillary refill. Absent: cyanosis, clubbing, edema - *Routine Skin Exam Present: intact, warm. Absent: erythema, rash - *Routine Neurological Exam Present: alert, oriented X3, CN II-XII intact. Absent: sensory deficit, motor deficit - Detailed Eye Exam Eyelids: Left normal inspection Progress Note: A&P (1) Cardiomyopathy Status: Acute Current Visit: Yes (2) New onset atrial fibrillation Status: Acute Current Visit: Yes (3) Elevated brain natriuretic peptide (BNP) level Status: Acute Current Visit: Yes (4) Parkinsonism Status: Acute Current Visit: Yes (5) Renal insufficiency Status: Acute Current Visit: Yes (6) Mitral regurgitation Status: Acute Current Visit: Yes (7) CAD (coronary artery disease) Status: Acute Current Visit: Yes (8) Elevated left ventricular end-diastolic pre
--- NOTE | 2019-01-17 11:31 | HMH.PHAINT ---
DISCHARGE COUNSELING PROVIDED TO PATIENT FOR ALL MEDICATIONS. PATIENT VERBALIZED UNDERSTANDING AND DID NOT HAVE ANY QUESTIONS.
== END 2019-01-17 09:54 | disposition home or self-care (01) ==
LOC: ER 19:18 → 2ND 19:30
PROVIDERS: Internal Medicine; Internal Medicine Adolescent Medicine; Nurse Practitioner Family; Admitting Provider Internal Medicine Adolescent Medicine; Emergency Provider Emergency Medicine Emergency Medical Services; PCP Nurse Practitioner Family; Visit Provider Internal Medicine Adolescent Medicine
DX: I48.91 Unspecified atrial fibrillation (principal); I11.0 Hypertensive heart disease with heart failure; I50.20 Unspecified systolic (congestive) heart failure; E78.5 Hyperlipidemia, unspecified; E03.9 Hypothyroidism, unspecified; I43 Cardiomyopathy in diseases classified elsewhere; I34.0 Nonrheumatic mitral (valve) insufficiency; E87.6 Hypokalemia; Z91.81 History of falling; R55 Syncope and collapse
CPT/HCPCS: 36415; 71046; 75625; 76770; 80048; 80053; 80061; 81001; 83880; 84443; 84484; 85025; 85610; 87205; 93005; 93306; 93458; 96365; 97161; 97165; 99152; 99153; 99284; C1725; C1769; G0378; J1644; Q9967

== ENCOUNTER → 2019-09-03 10:35 | Outpatient (CLI) | payer MEDICARE, SELFPAY ==
--- NOTE | 2019-09-03 10:41 | MR_ITS ---
PROCEDURE: MR HEAD/BRAIN WO/W CON CLINICAL INDICATION: OTHER SYMPTOMS AND SIGNS INVOLVING THE NERVOUS SYSTEM COMPARISON: No exams were available for comparison TECHNIQUE: Routine multiplanar multisequence exam with and without contrast was performed with 14 milliliters ProHance administration. FINDINGS: There is diffuse atrophy compatible with the stated age. Nonspecific moderate to large amount of scattered nonenhancing periventricular and subcortical T2 white matter hyperintensities which may be due to ischemic gliotic change from microvascular disease. Migraine headache is an additional consideration. Demyelinating process felt to be less likely due to the imaging characteristics but not totally excluded. No acute infarction intracranial hemorrhage mass mass effect or extra-axial fluid collection is apparent. There is no abnormal enhancement. Normal flow voids are seen in both carotid arteries and in the basilar artery. Mild mucosal thickening of sinusitis is seen in the right maxillary sinus. IMPRESSION: Atrophy and findings most consistent with moderate to severe small hardboard panel printer vessel ischemic gliotic disease. No acute intracranial pathology. Dictated by: Matthew Martins 09/03/2019 13:06 Electronically signed by Matthew Martins in [place] 09/03/2019 13:06
--- NOTE | 2019-09-03 12:18 | HMH.ITSHM ---
Current Home Medications as stated by this patient Boilvar Dent or new accounts banking representative. []CLARTIAN LISINOPRIL LEVOTHYROXIN ALPRAZOLAM ASPIRIN FLOMAX CARVEDILOL
== END ==
PROVIDERS: PCP Nurse Practitioner; Visit Provider Nurse Practitioner
DX: I48.91 Unspecified atrial fibrillation (principal); R29.818 Other symptoms and signs involving the nervous system
CPT/HCPCS: 70553; A9576

== ENCOUNTER → 2019-09-12 12:59 | Outpatient (CLI) | payer MEDICARE, SELFPAY ==
--- NOTE | 2019-09-12 13:00 | CA_ITS ---
APPROVED REPORT Auto Mechanics Teacher: Tammy Nix RVT Laterality: Bilateral Study Quality: Good Indications: tia, syncope, Dizziness and Vertigo Risk Factors Hypertension: TIA/CVA History Doppler Spectral Velocity Analysis ECA (R) 81.60/3.90 cm/s ECA (L) 81.90/4.10 cm/s dICA (R) 45.50/11.60 cm/s dICA (L) 43.40/8.00 cm/s Ethan (R) 49.60/10.40 cm/s Ethan (L) 51.40/11.40 cm/s pICA (R) 38.00/7.80 cm/s pICA (L) 36.00/6.20 cm/s dCCA (R) 41.70/6.60 cm/s dCCA (L) 47.20/8.50 cm/s pCCA (R) 46.60/5.70 cm/s pCCA (L) 50.10/7.40 cm/s Vert (R) 24.30/5.60 cm/s Vert (L) 32.00/5.30 cm/s ICA/CCA 1.19 ICA/CCA 1.09 Findings Study suggests less than 20% stenosis of the right internal cartoid artery. Study suggests less than 20% stenosis of the left internal cartoid artery. Antegrade flow seen bilateral vertebral arteries. Conclusion No increased velocities to suggest hemodynamically significant stenosis in either internal carotid artery. Electronically signed by : Jeffrey Alcantara MD 09/13/2019 17:37:27
== END ==
PROVIDERS: PCP Nurse Practitioner; Visit Provider Specialist
DX: G45.9 Transient cerebral ischemic attack, unspecified (principal); R55 Syncope and collapse
CPT/HCPCS: 93880

== ENCOUNTER → 2020-06-11 11:08 | Outpatient (CLI) | payer MEDICARE, SELFPAY ==
[2020-06-11 12:26] LABS: Basophils % 0.3 % (0.1-2.0); Eosinophils # 0.2 K/mm3 (0.0-0.4); Eosinophils % 4.2 % (0.1-12.0); Hematocrit 37.8 % (42.0-52.0); Hemoglobin 12.7 g/dL (14.1-18.0); Lymphocytes # 0.8 K/mm3 (0.7-4.5); Lymphocytes % 16.6 % (10-50); Mean Corpuscular HGB Conc 33.7 g/dL (31.8-35.4); Mean Corpuscular Hemoglobin 33.5 pg (27.0-31.2); Mean Corpuscular Volume 99.2 fl (80-94); Mean Platelet Volume 8.3 fl (7.4-10.4); Monocytes # 0.3 K/mm3 (0.1-1.0); Monocytes % 6.2 % (1.7-9.3); Neutrophils # 3.3 K/mm3 (1.8-7.8); Neutrophils % 72.8 % (37.0-80.0); Platelet Count 115 K/mm3 (142-424); Red Blood Count 3.81 M/mm3 (4.60-6.20); Red Cell Distribution Width 13.4 % (11.5-17.5); White Blood Count 4.5 K/mm3 (4.8-10.8)
[2020-06-11 12:50] LABS: Chloride 103 mmol/L (98-107); Sodium 137 mmol/L (136-145)
[2020-06-11 12:52] LABS: Blood Urea Nitrogen 22 mg/dl (9-20); Estimated Glomerular Filt Rate 46 ml/min (>60); GFR (African American) 55 ML/MIN (>60)
[2020-06-11 12:53] LABS: Alanine Aminotransferase 28 U/L (12-78); Albumin Level 4.2 g/dl (3.5-5.0); Alkaline Phosphatase 118 U/L (38-126); Aspartate Amino Transferase 48 U/L (17-59); Bilirubin,Total 0.9 mg/dl (0.2-1.3); Calcium 9.2 mg/dl (8.4-10.2); Carbon Dioxide 26 mmol/L (22.0-30.0); Globulin 4.3 g/dL (1.3-3.2); Glucose 95 mg/dl (74-100); Iron 167 ug/dL (49-181); Total Protein,Serum 8.5 g/dl (6.3-8.2)
[2020-06-11 13:03] LABS: Total Iron Binding Capacity 247 ug/dL (261-462)
[2020-06-11 13:43] LABS: Ferritin > 1000 ng/ml (17.9-464)
[2020-06-11 13:50] LABS: Vitamin B12 594 pg/mL (239-931)
[2020-06-11 14:01] LABS: Folate 2.65 ng/mL
[2020-06-12 14:11] LABS: Free Kappa Lt Chains 100.3 mg/L (3.3-19.4); Free Lambda Lt Chains 65.5 mg/L (5.7-26.3)
[2020-06-12 16:59] LABS: Albumin 3.6 g/dL (2.9-4.4); Alpha-1-Globulin 0.3 g/dL (0.0-0.4); Alpha-2-Globulin 0.8 g/dL (0.4-1.0); Gamma Globulin 2.4 g/dL (0.4-1.8); Immunoglobulin A, Qn 561 mg/dL (61-437); Immunoglobulin G, Qn 2633 mg/dL (603-1613); Protein, Total 8.1 g/dL (6.0-8.5)
[2020-06-12 17:32] LABS: Immunoglobulin M, Qn 109 mg/dL (15-143)
== END ==
PROVIDERS: Visit Provider Internal Medicine Medical Oncology
DX: R63.4 Abnormal weight loss (principal); D64.9 Anemia, unspecified; R79.0 Abnormal level of blood mineral
CPT/HCPCS: 36415; 80053; 82607; 82728; 82746; 82784; 83540; 83550; 83883; 84155; 84165; 85025; 86334

== ENCOUNTER → 2020-06-22 13:56 | Outpatient (CLI) | payer MEDICARE, SELFPAY ==
--- NOTE | 2020-06-22 14:38 | MR_ITS ---
PROCEDURE: MR HEAD/BRAIN WO/W CON CLINICAL INDICATION: CEREBRAL INFARCTION HX TIA, SEVERAL FALLS, CONFUSION. COMPARISON: No exams were available for comparison TECHNIQUE: Routine multiplanar multi echo sequences are performed without gadolinium enhancement. FINDINGS: No midline shift, mass effect, intracranial hemorrhage, or hydrocephalus is evident. The cerebellopontine angles, cerebellum, and brainstem have an unremarkable appearance. There is moderate generalized cerebral atrophy with periventricular and subcortical T2 white matter hyperintensity consistent with ischemic gliotic change from microvascular disease. 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 No enhancing lesions are evident. The atrophy is somewhat greater in the frontal lobes and anterior parietal and temporal regions compared to the remaining brain. There is no evidence of acute infarction. No enhancing lesions are evident. The pituitary and optic chiasm have an unremarkable appearance. There is thinning of the corpus callosum. Lamina hypertrophy noted posteriorly at C 3 C4 with narrowing of the canal at this area. No mastoid effusion or sinus air-fluid level., IMPRESSION: 1. No acute intracranial findings. 2. 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 3. Spinal stenosis due to lamina hypertrophy at C3-C4 Dictated by: Jeffrey Alcantara MD 06/23/2020 08:37 Jeffrey Alcantara MD in [place] 06/23/2020 08:37
[2020-06-22 15:05] LABS: Alanine Aminotransferase 26 U/L (12-78); Albumin Level 3.9 g/dl (3.5-5.0); Albumin/Globulin Ratio 0.9 (1.1-1.8); Alkaline Phosphatase 109 U/L (38-126); Anion Gap 13.1 mEq/L (5-15); Aspartate Amino Transferase 44 U/L (17-59); Bilirubin,Total 0.9 mg/dl (0.2-1.3); Blood Urea Nitrogen 25 mg/dl (9-20); Calcium 9.5 mg/dl (8.4-10.2); Carbon Dioxide 28 mmol/L (22.0-30.0); Chloride 101 mmol/L (98-107); Estimated Glomerular Filt Rate 46 ml/min (>60); GFR (African American) 55 ML/MIN (>60); Globulin 4.2 g/dL (1.3-3.2); Glucose 84 mg/dl (74-100); Potassium 4.1 mmoL/L (3.5-5.1); Sodium 138 mmol/L (136-145); Total Protein,Serum 8.1 g/dl (6.3-8.2)
[2020-06-22 15:07] LABS: Basophils % 0.2 % (0.1-2.0); Eosinophils # 0.1 K/mm3 (0.0-0.4); Eosinophils % 3.6 % (0.1-12.0); Hematocrit 38.1 % (42.0-52.0); Hemoglobin 13.1 g/dL (14.1-18.0); Lymphocytes # 0.8 K/mm3 (0.7-4.5); Lymphocytes % 19.2 % (10-50); Mean Corpuscular HGB Conc 34.4 g/dL (31.8-35.4); Mean Corpuscular Hemoglobin 33.7 pg (27.0-31.2); Mean Corpuscular Volume 97.9 fl (80-94); Mean Platelet Volume 7.9 fl (7.4-10.4); Monocytes # 0.3 K/mm3 (0.1-1.0); Monocytes % 6.7 % (1.7-9.3); Neutrophils # 2.7 K/mm3 (1.8-7.8); Neutrophils % 70.2 % (37.0-80.0); Platelet Count 116 K/mm3 (142-424); Red Blood Count 3.89 M/mm3 (4.60-6.20); Red Cell Distribution Width 13.7 % (11.5-17.5); White Blood Count 3.9 K/mm3 (4.8-10.8)
[2020-06-22 16:11] LABS: Vitamin B12 632 pg/mL (239-931)
[2020-06-22 16:16] LABS: Folate 2.71 ng/mL
[2020-06-22 16:19] LABS: Iron 168 ug/dL (49-181)
[2020-06-22 16:28] LABS: Total Iron Binding Capacity 246 ug/dL (261-462)
[2020-06-22 16:55] LABS: Ferritin 948 ng/ml (17.9-464)
[2020-06-24 16:15] LABS: Albumin 3.4 g/dL (2.9-4.4); Alpha-1-Globulin 0.2 g/dL (0.0-0.4); Alpha-2-Globulin 0.7 g/dL (0.4-1.0); Gamma Globulin 2.3 g/dL (0.4-1.8); Immunoglobulin A, Qn 510 mg/dL (61-437); Immunoglobulin G, Qn 2426 mg/dL (603-1613); Protein, Total 7.5 g/dL (6.0-8.5)
[2020-06-24 17:21] LABS: Free Kappa Lt Chains 108.8 mg/L (3.3-19.4); Free Lambda Lt Chains 67.4 mg/L (5.7-26.3)
[2020-06-25 09:04] LABS: Immunoglobulin M, Qn 97 mg/dL (15-143)
== END ==
PROVIDERS: Internal Medicine Medical Oncology; PCP Nurse Practitioner; Visit Provider Nurse Practitioner
DX: I63.9 Cerebral infarction, unspecified (principal); R63.4 Abnormal weight loss; D64.9 Anemia, unspecified; R79.0 Abnormal level of blood mineral
CPT/HCPCS: 36415; 70553; 80053; 82607; 82728; 82746; 82784; 83540; 83550; 83883; 84155; 84165; 85025; 86334; A9576

== ENCOUNTER → 2020-06-23 09:53 | Outpatient (CLI) | payer MEDICARE, SELFPAY ==
--- NOTE | 2020-06-23 09:59 | CT_ITS ---
PROCEDURE: CT ABDOMEN PELVIS WO CON CLINICAL INDICATION: 20 lb weight loss in 3 months with weakness COMPARISON: No exams were available for comparison TECHNIQUE: Axial images obtained with sagittal and coronal reformats. All CT scans at the facility use one or more dose reduction, viz: automated exposure control, ma/kV adjustment per patient size (including targeted exams where dose is matched to indication, i.e. head), or iterative reconstruction technique. FINDINGS: There is mild thickening of the pericardium. Large gallstone is present. Nodularity is noted involving the right hepatic lobe. Solid organ evaluation is very limited without IV contrast. This nodular area along the right hepatic lobe measures approximately 3 cm and may represent a isodense mass or an area of nodular regeneration. There is a portal soft tissue mass which measures 8 cm transverse and 4.9 cm AP. This also is incompletely evaluated without IV contrast. The spleen is enlarged at 16 cm. The adrenal glands are unremarkable. The pancreas has an unremarkable appearance. The portal mass is displacing the the antrum of the stomach anteriorly and blends imperceptibly with the splenic vein and portal vein. Nonobstructing 6 mm stone is present in the mid polar region of the right kidney. There is mild stranding of the fat in the celiac region. The celiac artery is enlarged fusiform length measuring 2 cm in diameter. Scattered small lymph nodes are present in the periaortic region. There is a small amount of fluid in the pelvis with scattered diverticula. No inguinal adenopathy. No acute bony findings. There is wedging of T12 which appears chronic. There is diffuse osteopenia with scattered areas of decreased attenuation in the pelvis with symmetric areas of decreased density in the sacrum and an asymmetric area of decreased density in the right ilium near the SI joint which may only be due to osteopenia. IMPRESSION: 1. Soft tissue mass is present in the portal area consistent consistent with neoplasm. Metastatic disease or lymphoma is a consideration. There is an isodense nodular area of the right hepatic lobe which could be due to neoplasm or regenerating nodule. CT without and with contrast with delayed imaging suggested for further evaluation. Alternatively, MRI without and with contrast could also be of further value. This is not amenable to percutaneous biopsy. Endoscopic ultrasound with biopsy is a consideration. 2. Cholelithiasis. 3. Splenomegaly. 4. Right nephrolithiasis. 5. 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 Arteritis or slow leak is a consideration. Follow-up suggested. Dictated by: Jeffrey Alcantara MD 06/24/2020 10:38 Jeffrey Alcantara MD in [place] 06/24/2020 10:38
--- NOTE | 2020-06-23 09:59 | CT_ITS ---
PROCEDURE: CT CHEST WO CON Fat the CLINICAL INDICATION: WEIGHT LOSS 20 LBS IN 3 MONTHS COMPARISON: No exams were available for comparison TECHNIQUE: Axial images obtained with sagittal and coronal reformats. All CT scans at the facility use one or more dose reduction, viz: automated exposure control, ma/kV adjustment per patient size (including targeted exams where dose is matched to indication, i.e. head), or iterative reconstruction technique. FINDINGS: Study is somewhat limited without the benefit of IV contrast. There is cardiomegaly. Coronary artery calcifications are present. There is dilatation of the ascending aorta at 5.1 cm. There is mild thickening of the pericardium. There is moderate right-sided gynecomastia. There is mediastinal adenopathy. Nodes measure up to 3 cm in the precarinal region. There is bilateral hilar adenopathy is well. It is somewhat difficult to determine the direct measurements of the hilar nodes due to the prominent vessels and lack of IV contrast. There is mild ground-glass mosaic attenuation of both upper and lower lobes. No effusions are evident. No suspicious pulmonary nodules. Chronic wedge compression changes are present at T12 and T9. There are old right-sided rib fractures. IMPRESSION: 1. Cardiomegaly with aneurysmal dilatation of the ascending aorta measuring up to 5 cm with coronary artery calcification. 2. Mediastinal and hilar adenopathy. 3. Ground-glass/mosaic attenuation of the lungs on both sides. This is nonspecific and could be seen with inflammation/infection, or small airway disease. 4. Right-sided gynecomastia Dictated by: Jeffrey Alcantara MD 06/24/2020 09:54 Jeffrey Alcantara MD in [place] 06/24/2020 09:54
== END ==
PROVIDERS: PCP Nurse Practitioner; Visit Provider Internal Medicine Medical Oncology
DX: R63.4 Abnormal weight loss (principal)
CPT/HCPCS: 71250; 74176

== ENCOUNTER → 2020-07-01 12:30 | Outpatient (CLI) | payer MEDICARE, SELFPAY ==
--- NOTE | 2020-07-01 12:31 | FL_ITS ---
PROCEDURE: FL BARIUM SWALLOW MODIFIED CLINICAL INDICATION: dysphagia COMPARISON: No exams were available for comparison TECHNIQUE: Patient administered varying consistencies of barium contrast, while viewed in lateral position under real-time fluoroscopy with cine recording. FLUOROSCOPY TIME:3 minutes and 27 seconds The study was performed in conjunction with speech pathologist. Please see that report & recommendations. FINDINGS: Patient was given varying consistencies of barium. There was a small amount aspiration with thin liquids. No other areas of aspiration or penetration were evident. There was some mild delay in initiation the swallowing mechanism with pudding. IMPRESSION: There was 1 instance a small amount aspiration along the anterior aspect of the trachea with thin liquid and could have been even due to some aspirated residual contents. This was not repeated on multiple subsequent swallows. There was some mild delay in initiation of swallowing mechanism with pudding Please see speech pathologist report and recommendations. Dictated by: Jeffrey Alcantara MD 07/02/2020 17:14 Jeffrey Alcantara MD in [place] 07/02/2020 17:14
--- NOTE | 2020-07-01 14:07 | HMH.SLMBS2 ---
Speech & Language Evaluation Speech/Language Mod Barium Swallow Start: 07/01/20 13:52 Freq: once Status: Complete Protocol: Document 07/01/20 13:52 FARRAH (Rec: 07/01/20 14:07 FARRAH [id number]) General Information General Current Food Consistancy Regular,Thin Liquids Dentition Poor Dentition Oxygen Status Room Air Facial Symmetry Symmetrical Patient Orientation Person,Place,Time,Situation Ability to Follow Directions Good Communication Ability Mild Impairment MBS Recommendations Diet Dietary Recommendations Regular,Thin Liquids Speech/Language MBS Assessment/Goals/Plan Assessment Date of Evaluation: 07/01/20 Evaluation Type Initial Certification Assessment/Problems Dysphagia Does Patient Qualify for Service Yes Qualify/Failure Comment Based on results of MBS, it is recommended that Mr. Dent be seen through outpatient therapy for dysphagia. Recommendations PHYSICIAN CERTIFICATION: The specified therapy services are required, authorized, and reviewed every 30 days. Pt will be seen # times/week 1 for # weeks 4 Diet Recommendations Normal Liquid Type Recommendations Normal/Thin Additional Consults Recommended Physical Therapy Plan Pt/Guardian verbally ack understanding Yes of dx/prognosis/goals G -code Required No STG-Other Comment/Non-Specific 1. Tongue exercises to increase lingual strength 4/5 trials 2. Effortful swallow exercises to increase base of tongue strength 4/5 trials 3. Modified shaker (towel tuck ) to increase hyolaryngeal strength 4/5 trials 4. Valsalva maneuver to increase adduction vocal fold strength 4/5 trials Manager Clinical Pharmacy Goals Diet regular with Liquids Thin Liquids Mod Barium Swallow Setup Exam Setup Radiologist Jeffrey Alcantara Level of Consciousness Awake,Alert,Appropriate, Follows Commands Position (degrees) 90 Mod Barium Swallow-Lat View Textures Lateral View Food Presentation Thin Liquid via Cup,Thin Liquid via Straw,[place] Liquid via Cup,Honey Liquid via Cup, Pureed Food- Thick,Ground Food - Regular,Barium Tablet,
== END ==
PROVIDERS: PCP Nurse Practitioner; Visit Provider Specialist
DX: R13.10 Dysphagia, unspecified (principal); R63.4 Abnormal weight loss
CPT/HCPCS: 70371; 92611

== ENCOUNTER 2020-07-27 16:11 | Emergency (ER) | payer MEDICARE, MEDICAID, SELFPAY ==
--- NOTE | 2020-07-27 16:30 | XR_ITS ---
PROCEDURE: XR HUMERUS LT CLINICAL INDICATION: fall, pain bruising COMPARISON: CR XR SHOULDER LT MIN 2V from 07/27/2020 FINDINGS: There is a nondisplaced mildly impacted fracture involving the surgical neck of the humerus. No other fractures are evident. A sclerotic density is noted in the olecranon fossa region and could be related to a loose body. There is no evidence of shoulder dislocation. The AC joint has an unremarkable appearance. IMPRESSION: Nondisplaced mildly impacted left humeral neck fracture Dictated by: Jeffrey Alcantara MD 07/27/2020 17:25 Jeffrey Alcantara MD in [place] 07/27/2020 17:25
--- NOTE | 2020-07-27 16:30 | XR_ITS ---
PROCEDURE: XR ELBOW LT 2V CLINICAL INDICATION: fall, pain COMPARISON: No exams were available for comparison FINDINGS: No obvious fracture or dislocation. A straight lateral elbow is not submitted therefore cannot adequately evaluate for a fat pad. There is a oval calcific density in the lack or non fossa consistent with a loose body. This measures approximately 15 mm. There are mild osteoarthritic changes of the elbow. IMPRESSION: Osteoarthritic change, loose body, no acute fracture Dictated by: Jeffrey Alcantara MD 07/27/2020 18:18 Jeffrey Alcantara MD in [place] 07/27/2020 18:18
[2020-07-27 16:36] VITALS: BP 165/65; PULSE 59; RESP 16; TEMP 36.9; O2SAT 98; BMI 23.1
[2020-07-27 17:50] VITALS: BP 158/70; PULSE 87; RESP 16; O2SAT 98
--- NOTE | 2020-07-27 18:01 | PC.NURSE ---
speaking with Dr. Baca
[2020-07-27 18:06] VITALS: BP 150/81; PULSE 87; RESP 16; TEMP 36.8; O2SAT 100
--- NOTE | 2020-07-27 18:58 | HMH.EDFALL ---
ED Disposition Clinical Impression: Proximal humeral fracture Qualifiers: Encounter type: initial encounter Fracture type: closed Fracture morphology: other fracture Fracture alignment: displaced Laterality: left Qualified Code(s): S42.292A - Other displaced fracture of upper end of left humerus, initial encounter for closed fracture Disposition: Home, Self-Care Condition on Discharge: Good Additional Instructions: Take the oxycodone for the WORST breakthrough pain. Take ibuprofen for moderate pain. Follow up with Orthopedic Surgery. Wear the sling for comfort. Prescriptions: Oxycodone HCl [Oxycodone 5mg tab (IR)] 5 mg PO Q6HP PRN #10 tab PRN Reason: Severe Pain Prescription Printed Referrals: Rosy Baca MD [Physician] - Earnestine Russ APRN [Primary Care Provider] - - Critical Care Critical Care Time: No Attestation: On 07/27/20, the high probability of a clinically significant, sudden or life threatening deterioration of the following system(s) required my full and direct attention, intervention and personal management. The time I documented below is in addition to time spent performing reported procedures but includes the following listed in this critical care notation. Medical Decision Making - Medical Records Medical records reviewed: Yes: I reviewed the patient's medical records. - Ron Inquiry Pt receiving controlled substance: Yes Ron was queried for this patient: No Reason not queried -: Hospital network issues Risks and benefits of using a controlled substance: were discussed with pt by me Vital Signs: 07/27/20 16:36 07/27/20 17:50 07/27/20 18:06 Temperature 98.5 F 98.2 F Temperature Source Oral Oral Pulse Rate 87 Pulse Rate [Right] 59 L 87 Respiratory Rate 16 16 16 Blood Pressure 150/81 H Blood Pressure [Right Arm] 165/65 H 158/70 H Blood Pressure Mean [Right Arm] 98 99 Blood Pressure Source Automatic Cuff Blood Pressure Source [Right Arm] Automatic Cuff Blood Pressure Position Sitting Blood Pressure Position [Right Arm] Sitting 02 Sat by Pulse Oximetry 98 98 Oxygen Delivery Method Room Air Room Air Room Air Orders (Tests/Meds): ORDERS Category Date Time Status XR humerus LT Stat Exams 07/27/20 16:30 Taken XR shoulder LT min 2V Stat Exams 07/27/20 16:30 Taken Medical Decision Narrative: The patient is a 75 year old male with a history of parkinson's who presents with left arm pain after fall. The patient is awake, alert, stable. Neurologically nonfocal. He has an obvious deformity of his left shoulder / arm with bruising and swelling. X-rays of the humerus, shoulder and elbow on the left shows a proximal humerus fracture. He was placed in a sling and orthopedic surgery was contacted for follow up. patient declines follow up and sling. Will give oxycodone for pain and encouraged patient to follow up with Dr. Baca. Fall HPI - General Chief Complaint: Fall Stated Complaint: AO 1212 1600 fell injured l shoulder Time Seen by Provider: 07/27/20 16:36 Mode of Arrival: Wheelchair Limitations: No Limitations Description of Symptoms (Recalled from ER Triage Doc. by RN): PT fell out of a chair on Monday and injured his left shoulder/humerus. Pt has swelling and bruising noted to the left arm - History of Present Illness HPI Narrative: The patient is a 75 year old male who presents to the ED with left arm pain. The patient fell out of a chair 3 days ago on to his left arm. He has had pain since then but did not seek care. He was seen today in Neurology clinic for a follow up for his Parkinson's and was sent here for evaluation. He denies any other pain. No numbness. He has not been taking anything except ibuprofen for pain. - Related Data Home Medications Medication Instructions Recorded Confirmed Aspirin [Aspir 81] 81 mg PO DAILY 01/14/19 07/27/20 PARoxetine HCL [Paxil 20mg Tablet] 20 mg PO DAILY 01/14/19 07/27/20 Tamsulosin HCl [F
== END 2020-07-27 18:07 | disposition home or self-care (01) ==
PROVIDERS: Emergency Provider Emergency Medicine; PCP Nurse Practitioner
DX: S42.292A Other displaced fracture of upper end of left humerus, initial encounter for closed fracture (principal); W07.XXXA Fall from chair, initial encounter; Y92.019 Unspecified place in single-family (private) house as the place of occurrence of the external cause; G20 Parkinson's disease; I48.20 Chronic atrial fibrillation, unspecified; I10 Essential (primary) hypertension; E78.5 Hyperlipidemia, unspecified; E03.9 Hypothyroidism, unspecified; F41.8 Other specified anxiety disorders; Z79.899 Other long term (current) drug therapy
CPT/HCPCS: 73030; 73060; 73070; 99282

== ENCOUNTER 2020-08-02 04:19 | Observation (INO) | payer MEDICARE, MEDICAID, SELFPAY ==
[2020-08-02] VITALS (12 sets, daily range): BP systolic 111–208; BP diastolic 55–91; PULSE 60–85; RESP 12–20; TEMP 36.6–37.2; O2SAT 96–100; BMI 22.7; BMI 23.0
--- NOTE | 2020-08-02 05:05 | PC.NURSE ---
pt given urinal for specimen. family @ bedside
[2020-08-02 05:27] LABS: Basophils % 0.3 % (0.1-2.0); Eosinophils # 0.1 K/mm3 (0.0-0.4); Eosinophils % 2.3 % (0.1-12.0); Hematocrit 32.7 % (42.0-52.0); Hemoglobin 11.1 g/dL (14.1-18.0); Lymphocytes # 0.6 K/mm3 (0.7-4.5); Lymphocytes % 13.8 % (10-50); Mean Corpuscular Hemoglobin 34.3 pg (27.0-31.2); Mean Corpuscular Volume 100.9 fl (80-94); Mean Platelet Volume 8.8 fl (7.4-10.4); Monocytes # 0.2 K/mm3 (0.1-1.0); Monocytes % 5.2 % (1.7-9.3); Neutrophils # 3.4 K/mm3 (1.8-7.8); Neutrophils % 78.4 % (37.0-80.0); Platelet Count 120 K/mm3 (142-424); Red Blood Count 3.25 M/mm3 (4.60-6.20); Red Cell Distribution Width 14.2 % (11.5-17.5); White Blood Count 4.3 K/mm3 (4.8-10.8)
[2020-08-02 05:37] LABS: Chloride 104 mmol/L (98-107); Potassium 4.2 mmoL/L (3.5-5.1); Sodium 136 mmol/L (136-145)
[2020-08-02 05:39] LABS: Alanine Aminotransferase 17 U/L (12-78); Aspartate Amino Transferase 32 U/L (17-59); Blood Urea Nitrogen 30 mg/dl (9-20); Creatinine Clearance Estimated 37 mL/min (50-200); Estimated Glomerular Filt Rate 42 ml/min (>60); GFR (African American) 51 ML/MIN (>60)
[2020-08-02 05:40] LABS: Albumin Level 3.9 g/dl (3.5-5.0); Albumin/Globulin Ratio 0.9 (1.1-1.8); Alkaline Phosphatase 88 U/L (38-126); Anion Gap 10.2 mEq/L (5-15); Bilirubin,Total 1.6 mg/dl (0.2-1.3); Calcium 9.2 mg/dl (8.4-10.2); Carbon Dioxide 26 mmol/L (22.0-30.0); Globulin 4.4 g/dL (1.3-3.2); Glucose 104 mg/dl (74-100); Total Protein,Serum 8.3 g/dl (6.3-8.2)
[2020-08-02 05:47] LABS: Coronavirus 19 IgG Antibody Positive (Negative); Coronavirus 19 IgM Antibody Negative (Negative)
[2020-08-02 05:57] LABS: T4 (Thyroxine) 13.3 ug/dl (5.53-11.0)
--- NOTE | 2020-08-02 06:05 | XR_ITS ---
PROCEDURE: XR CHEST PORTABLE CLINICAL HISTORY: failure to thrive, poor appetite,weakness COMPARISON: CR Chest from 01/14/[address] CHEST WO CON from 06/23/2020 FINDINGS: Cardiomegaly without failure. There are low lung volumes. There is slight increased density in the right mid to lower lung zone which may be due to vascular crowding. No lobar consolidation or collapse. No acute bony abnormalities. IMPRESSION: Cardiomegaly otherwise negative Dictated by: Jeffrey Alcantara MD 08/02/2020 08:15 Jeffrey Alcantara MD in [place] 08/02/2020 08:15
--- NOTE | 2020-08-02 06:06 | PC.NURSE ---
called lab to advise of swabbing for covid.called rad to advise of portable cxr.
--- NOTE | 2020-08-02 06:08 | PC.NURSE ---
spoke with alicia re: cxr
[2020-08-02 06:11] LABS: Thyroid Stimulating Hormone 4.45 uIU/mL (0.465-4.68)
[2020-08-02 06:14] LABS: Adenovirus,PCR Not Detected (NotDetected); Bordetella Pertussis Not Detected (NotDetected); Chlamydophila Pneumoniae, PCR Not Detected (NotDetected); Coronavirus 19, PCR Not Detected (NotDetected); Coronavirus 229E Not Detected (NotDetected); Coronavirus NL63 Not Detected (NotDetected); Coronavirus OC43 Not Detected (NotDetected); Coronovirus HKU1,PCR Not Detected (NotDetected); Human Metapneumovirus Not Detected (NotDetected); Influenza A, PCR Not Detected (NotDetected); Influenza AH1, 2009 Not Detected (NotDetected); Influenza AH1, PCR Not Detected (NotDetected); Influenza AH3,PCR Not Detected (NotDetected); Influenza B, PCR Not Detected (NotDetected); Mycoplasma Pneumoniae, PCR Not Detected (NotDetected); Parainfluenza 1, PCR Not Detected (NotDetected); Parainfluenza 2, PCR Not Detected (NotDetected); Parainfluenza 3, PCR Not Detected (NotDetected); Parainfluenza 4, PCR Not Detected (NotDetected); Respiratory Syncytial Virus Not Detected (NotDetected); Rhinovirus/Enterovirus Not Detected (NotDetected)
--- NOTE | 2020-08-02 06:15 | ECG_ITS ---
APPROVED REPORT Exam: Resting ECG HR:61 bpm ECG Measurements Heart Rate 61 AXES AR 244 P 24 QRSd 94 QRS -5 QT 472 T 54 QTc 475 Conclusion Sinus rhythm with sinus arrhythmia with 1st degree AV block Late R-wave progression, unchanged from prior tracings Abnormal ECG Electronically signed by : Kin Bustillo, 08/04/2020 17:32:06
[2020-08-02 06:35] LABS: Troponin I < 0.01 ng/ml (0.00-0.034)
--- NOTE | 2020-08-02 06:44 | HMH.EDWEAK ---
ED Disposition Clinical Impression: RED (acute kidney injury), Thrombocytopenia, COVID-19 virus IgG antibody detected Proximal humeral fracture Qualifiers: Encounter type: subsequent encounter Fracture type: closed Fracture morphology: unspecified fracture morphology Laterality: left Fracture healing: with routine healing Qualified Code(s): S42.202D - Unspecified fracture of upper end of left humerus, subsequent encounter for fracture with routine healing Parkinsonism Qualifiers: Parkinsonism type: Parkinson's disease Qualified Code(s): G20 - Parkinson's disease HTN (hypertension) Qualifiers: Hypertension type: unspecified Qualified Code(s): I10 - Essential (primary) hypertension Disposition: Admitted as Observation Condition on Discharge: Good Referrals: Earnestine Russ APRN [Primary Care Provider] - - Critical Care Critical Care Time: No Attestation: On 08/02/20, the high probability of a clinically significant, sudden or life threatening deterioration of the following system(s) required my full and direct attention, intervention and personal management. The time I documented below is in addition to time spent performing reported procedures but includes the following listed in this critical care notation. Medical Decision Making - Medical Records Medical records reviewed: Yes: I reviewed the patient's medical records. - Ron Inquiry Pt receiving controlled substance: No Vital Signs: 08/02/20 04:23 08/02/20 04:36 08/02/20 06:23 Temperature 98 F Temperature Source Oral Pulse Rate [Right Brachial] 85 61 65 Respiratory Rate 16 17 12 Blood Pressure [Right Arm] 111/55 L 128/67 145/73 H Blood Pressure Mean [Right Arm] 73 87 97 Blood Pressure Source [Right Arm] Automatic Cuff Automatic Cuff Automatic Cuff Blood Pressure Position [Right Arm] Supine Sitting 02 Sat by Pulse Oximetry 96 98 98 Oxygen Delivery Method Room Air Room Air 08/02/20 06:46 08/02/20 07:00 08/02/20 07:49 Temperature Temperature Source Pulse Rate [Right Brachial] 62 63 73 Respiratory Rate 13 15 15 Blood Pressure [Right Arm] 152/57 H 140/69 208/91 H Blood Pressure Mean [Right Arm] 88 92 130 Blood Pressure Source [Right Arm] Automatic Cuff Blood Pressure Position [Right Arm] Sitting Sitting 02 Sat by Pulse Oximetry 96 100 97 Oxygen Delivery Method Room Air Room Air - Lab Data Lab results reviewed: Yes: I reviewed the patient's lab results. Lab Results 08/02/20 05:15: WBC 4.3 L, RBC 3.25 L, Hgb 11.1 L, Hct 32.7 L, MCV 100.9 H, MCH 34.3 H, MCHC 34.0, RDW 14.2, Plt Count 120 L, MPV 8.8, Neut % (Auto) 78.4, Lymph % (Auto) 13.8, [place] % (Auto) 5.2, Eos % (Auto) 2.3, Baso % (Auto) 0.3, Neut # (Auto) 3.4, Lymph # (Auto) 0.6 L, [place] # (Auto) 0.2, Eos # (Auto) 0.1, Baso # (Auto) 0.0 08/02/20 05:15: Sodium 136, Potassium 4.2, Chloride 104, Carbon Dioxide 26, Anion Gap 10.2, BUN 30 H, Creatinine 1.60 H, Estimated Creat Clear 37, Estimated GFR 42 L, Est GFR ( Amer) 51 L, Glucose 104 H, Calcium 9.2, Total Bilirubin 1.6 H, AST 32, ALT 17, Alkaline Phosphatase 88, Troponin I < 0.01, Total Protein 8.3 H, Albumin 3.9, Globulin 4.4 H, Albumin/Globulin Ratio 0.9 L, TSH 4.45, Thyroxine (T4) 13.3 H 08/02/20 05:15: SARS-CoV-2 IgG Ab (Rapid) Positive A, SARS-CoV-2 IgM Ab (Rapid) Negative 08/02/20 05:30: Urine Color Yellow, Urine Appearance Clear, Urine pH 6.5, Ur Specific Welch 1.020, Urine Protein Trace, Urine Glucose (UA) Negative, Urine Ketones Negative, Urine Blood Negative, Urine Nitrate Negative, Urine Bilirubin Negative, Urine Urobilinogen 1.0, Ur Leukocyte Esterase Negative, Urine WBC 5-10 08/02/20 06:10: Chlamy pneumoniae PCR Not detected, Adenovirus (PCR) Not detected, B. pertussis DNA (PCR) Not detected, Coronavirus OC43 (PCR) Not detected, Coronavirus HKU1 (PCR) Not detected, Coronavirus 229E (PCR) Not detected, SARS-CoV-2 (PCR) Not detected, Coronavirus NL63 (PCR) Not detected, Human Metapneumovir PCR Not detected, Influenza A
[2020-08-02 06:46] LABS: Microscopic, Urine URINE MICROSCOPIC (MICROSCOPIC)
[2020-08-02 06:50] LABS: Appearance,Urine CLEAR (Clear); Bilirubin,Urine Negative (Negative); Blood, Urine Negative (Negative); Color,Urine YELLOW (Yellow); Glucose,Urine (UA) Negative (Negative); Ketones,Urine Negative (Negative); Leukocyte Esterase,Urine Negative (Negative); Nitrate,Urine Negative (Negative); PH,Urine 6.5 (5.0-8.5); Protein,Urine TRACE (Negative)
--- NOTE | 2020-08-02 07:10 | CT_ITS ---
PROCEDURE: CT HEAD/BRAIN WO CON CLINICAL INDICATION: fall confusion Head injury with headache/pain, contusion, abrasion or hematoma COMPARISON: No exams were available for comparison TECHNIQUE: Axial images obtained. All CT scans at the facility use one or more dose reduction, viz: automated exposure control, ma/kV adjustment per patient size (including targeted exams where dose is matched to indication, i.e. head), or iterative reconstruction technique. FINDINGS: No midline shift, mass effect, intracranial hemorrhage, hydrocephalus, or extra-axial fluid collection is evident. There is generalized atrophy with hypoattenuation of the periventricular white matter consistent with microangiopathic changes. The the calvarium has an unremarkable appearance. No mastoid effusion. No sinus air-fluid level. IMPRESSION: No acute intracranial finding Dictated by: Jeffrey Alcantara MD 08/02/2020 09:03 Jeffrey Alcantara MD in [place] 08/02/2020 09:03
--- NOTE | 2020-08-02 07:12 | CT_ITS ---
PROCEDURE: CT CERVICAL SPINE WO CON CLINICAL INDICATION: fall Posttraumatic pain, Neck injury with pain, contusion/abrasion or hematoma, cervical sprain/strain the COMPARISON: No exams were available for comparison TECHNIQUE: Axial images obtained with sagittal and coronal reformats. All CT scans at the facility use one or more dose reduction, viz: automated exposure control, ma/kV adjustment per patient size (including targeted exams where dose is matched to indication, i.e. head), or iterative reconstruction technique. Axial spiral CT scanning performed of the cervical spine beginning at the base of the skull and continuing to the upper T-spine. 3-D multiplanar reconstruction with 3-D manipulation of volumetric data set in image rendering was completed by the radiologist and/or technologist with the supervision of the radiologist on independent workstation. FINDINGS: No acute fracture or dislocation. There is multilevel cervical spondylosis with degenerative disc disease and facet and uncovertebral arthrosis and hypertrophy.. There is 3 mm anterolisthesis of C4 on C5. C2-C3: Degenerative disc disease with small central disc protrusion. C3-C4: Degenerative disc disease. Bilateral foraminal narrowing. C4-C5: Severe left-sided facet hypertrophy with foraminal narrowing with degenerative disc disease. C5-C6: Degenerative disc disease with endplate hypertrophy and with severe bilateral foraminal narrowing and canal stenosis. C6-C7: Canal stenosis with endplate hypertrophy and with degenerative disc disease and bilateral foraminal narrowing. C7-T1: 3 mm anterolisthesis of C7 with bilateral foraminal narrowing. IMPRESSION: Multilevel cervical spondylosis as detailed above. No acute fracture Dictated by: Jeffrey Alcantara MD 08/02/2020 09:10 Jeffrey Alcantara MD in [place] 08/02/2020 09:10
--- NOTE | 2020-08-02 07:20 | PC.NURSE ---
PT TO CT AT THIS TIME, ACCOMPANIED BY RIVAS RN
--- NOTE | 2020-08-02 07:42 | PC.NURSE ---
pt back from CT at this time, tolerated well.
--- NOTE | 2020-08-02 07:50 | PC.NURSE ---
gibson removed urine output 300cc
--- NOTE | 2020-08-02 07:50 | PC.NURSE ---
lt arm with swelling, bruising noted from shoulder down to hand. radial pulse strong cap refill brisk
--- NOTE | 2020-08-02 07:50 | PC.NURSE ---
ct results received
--- NOTE | 2020-08-02 08:04 | PC.NURSE ---
SPEAKING WITH DR SOLOMON
--- NOTE | 2020-08-02 08:14 | PC.NURSE ---
DR SOLOMON AGREED TO ADMIT PATIENT. [employer] SUPERVIS[employer] NOTIFIED FOR BED ASSIGNMENT.
--- NOTE | 2020-08-02 08:19 | PC.NURSE ---
updated family on plan of care
--- NOTE | 2020-08-02 08:45 | PC.NURSE ---
pt c/o lt shoulder and arm pain, moaning with pain, pt c/o nausea.
--- NOTE | 2020-08-02 08:51 | PC.NURSE ---
report called to floor
--- NOTE | 2020-08-02 09:24 | PC.NURSE ---
pt taken to room 209 per stretcher
--- NOTE | 2020-08-02 09:26 | PC.NURSE ---
Report received from Fermin Dickson RN in the ER. Pt transported to 209 via stretcher by myself and Fermin Dickson RN. Pt in bed, call light within reach, bed locked and in the lowest position. Pt's nurse, Graciela Arambula RN at bedside.
--- NOTE | 2020-08-02 13:23 | P.CONPHA_ITS ---
[facility] Pharmacy VTE Monitoring - Patient Demographics Admission date: 08/02/20 Report Date: 08/02/20 Time: 13:23 Allergies/Adverse Reactions: Patient Allergies acetaminophen Adverse Reaction (Verified 07/27/20 15:39) Gastrointestinal Upset Height: 1.7 m Weight: 66.735 kg Patient Problems: Current Active Problems (This Medical Record has been edited. Action required.) Proximal humeral fracture (Acute) RED (acute kidney injury) (Acute) Thrombocytopenia (Acute) COVID-19 virus IgG antibody detected (Acute) HTN (hypertension) (Acute) Parkinsonism (Chronic) - VTE Risk Labs: VTE Related Lab Results Hgb 11.1 g/dL (14.1-18.0) L 08/02/20 05:15 Hct 32.7 % (42.0-52.0) L 08/02/20 05:15 Plt Count 120 K/mm3 (142-424) L 08/02/20 05:15 BUN 30 mg/dl (9-20) H 08/02/20 05:15 Creatinine 1.60 mg/dl (0.66-1.25) H 08/02/20 05:15 Estimated Creat Clear 37 mL/min (50-200) 08/02/20 05:15 - Prophylaxis Types of VTE Prophylaxis: TEDS Knee High (CHERISE HOSE ORDERED) Location of Applied Device: Bilateral Lower Extremeties
--- NOTE | 2020-08-02 13:39 | HMH.HP ---
*Admission Date: 08/02/20 *Chief complaint: Weakness *History of present illness: Mr. Dent is a 75-year-old white male with a history of hypothyroidism, hypertensive heart disease, chronic atrial fibrillation, Parkinson's syndrome, and an as yet undetermined abdominal mass suspicious for carcinoma. He apparently has had multiple falls at home, most recently being seen in the ER on 07/27/2020 with a left proximal humeral fracture. He was discharged from the ER but over the past week has not done well at home. He was brought back to the ER early this morning because of progressive weakness, increased confusion, poor oral intake, and worsening pain and swelling of his left arm. He apparently had not been compliant with wearing his arm sling. He was evaluated in the ER and noted to be weak and perhaps a bit dehydrated based on labs. Left arm showed marked swelling and ecchymosis with concern for possible DVT. It appeared that his was having difficulty caring for him at home. He has been admitted for IV fluid hydration, further evaluation of his arm swelling with a venous Doppler, and care management consult for assistance at home versus possible placement. He follows with Dr. Ritter for Parkinson's syndrome and also with Dr. Tsai for his abdominal mass. A recent endoscopic ultrasound biopsy was inconclusive but suspicious for carcinoma with surgical biopsy recommended. He apparently has been scheduled at for surgical biopsy on 08/05/2020. [facility] History I have reviewed the patient's past medical history: Yes (Hx is from old records, patient is a poor historian, no family present) Medical History: Reports:: Anxiety, Atrial Fibrillation, BPH, Depression, Gall Bladder Disease (Cholelithiasis), Hyperlipidemia, Hypertension Denies:: Cancer, Diabetes Mellitus Type 1, Diabetes Mellitus Type 2, Internal Pacemaker, MRSA, Seizures *Have you ever received a pneumonia vaccine?: Yes *Have you received a flu vaccine this season?: Yes Other Medical History: Reports: Arthritis, Hypothyroidism, Other (Parkinson's syndrome, abdominal mass, weight loss, mild cognitive impairmen) Other Surgeries: Yes: Cardiac Catheterization, Colonoscopy, Other (vasectomy). No: Pacemaker Amputation: No Fractures: No - *Social History Smoking Status: Never smoker Tobacco Type: cigars # Packs/Day (cigarettes): 1 Alcohol Intake: never Alcohol Intake Frequency:: a few times a week Substance Use Type: denies use *Occupational Status:: disabled Housing: house Household Members: spouse *Travel in the last 8 weeks: None - Psychiatric History Pschychiatric History:: Reports:: Anxiety, Depression Family Hx:: Unable to obtain Review of Systems - Constitutional Reports weakness, Reports weight loss, Denies night sweats - Eyes Denies change in vision - ENT Reports poor balance, Denies abnormal hearing, Denies difficulty swallowing - *Cardiovascular Reports shortness of breath with activity, Reports irregular heart rhythm, Denies chest pain, Denies shortness of breath, Denies rapid, pounding, or irregular heartbeat - *Respiratory Denies chest congestion, Denies cough - *Gastrointestinal Reports other (Poor appetite), Denies abdominal pain, Denies change in bowel habits, Denies nausea - *Genitourinary Reports difficulty urinating, Denies blood in urine - *Musculoskeletal Reports abnormal walking, Reports muscle weakness - Integumentary/Breasts Denies change in skin color - *Neurologic Reports confusion, Reports frequent falls, Reports weakness, Denies headache(s), Denies seizure-like activity - Psychiatric Reports confusion, Reports depression - Endocrine Reports heat intolerance - Hematologic/Lymphatic Denies easy bleeding Meds Home Medications Medication Instructions Recorded Confirmed Type Aspirin [Aspir 81] 81 mg PO DAILY 01/14/19 08/02/20 History PARoxetine HCL [Paxil 20mg Tablet] 20 mg PO DAILY 01/14/19 08/02/20 History Tamsulosin HCl [Fl
--- NOTE | 2020-08-02 15:08 | PC.WOUNDNOTE ---
Wound Location: right knee Length:1.5 cm Width:1 cm Depth: Undermining Y/N: n Inflammation/swelling Y/N:n Pain and/or tenderness Y/N:n Exudate: na Color: Amount: None Odor Y/N:n right knee: large red scab noted, no drainage at this time.
--- NOTE | 2020-08-02 15:10 | PC.WOUNDNOTE ---
Wound Location: RIGHT INNER THIGH Inflammation/swelling Y/N:N Pain and/or tenderness Y/N:N Color: PURPLE BLUE Amount: None Odor Y/N:N PURPLE AND BLUE BRUISE NOTED ON INNER RIGHT THIGH
--- NOTE | 2020-08-02 15:12 | PC.WOUNDNOTE ---
Wound Location: LEFT ELBOW/ARM Inflammation/swelling Y/N:Y Pain and/or tenderness Y/N:Y Exudate: NA Color: YELLOW RED PURPLE Amount: None Odor Y/N:N LEFT ELBOW/ARM FROM PREVIOUS FALL, BRUISING AND EDEMA NOTED
--- NOTE | 2020-08-02 15:13 | PC.WOUNDNOTE ---
Wound Location: LEFT ARM Inflammation/swelling Y/N:Y Pain and/or tenderness Y/N:Y Color: RED Odor Y/N:N LEFT ARM, PURPULA NOTICED FROM PREVIOUS FALL.
--- NOTE | 2020-08-02 15:14 | PC.WOUNDNOTE ---
Wound Location: LEFT ARM; LATERAL Inflammation/swelling Y/N:Y Pain and/or tenderness Y/N:Y Color: Red Yellow Amount: None Odor Y/N:N LARGE RED AND PURPLE BRUISE NOTED FROM PREVIOUS FALL.
--- NOTE | 2020-08-02 15:16 | PC.WOUNDNOTE ---
Wound Location: LEFT HIP Inflammation/swelling Y/N:N Pain and/or tenderness Y/N:Y Color: PURPLE BLUE Odor Y/N:N PURPLE AND BLUE BRUISING NOTED FROM PREVIOUS FALL.
--- NOTE | 2020-08-02 17:16 | PC.NURSE ---
PATIENT ALERT TO SELF AND . LUNGS ARE DIMINISHED, PULSES EQUAL. PATIENT REQUESTS TO USE THE URINAL MULTIPLE TIME, WHEN THIS RN ASSISTS, PATIENT COMPLAINS OF BURNING WHEN URINATING. OUTPUT IS ABOUT 10ML. AT BEDSIDE, PROVIDED DAUGHTER'S PHONE NUMBER AND IS REQUESTING THAT MD PHONE DAUGHTER. PATIENT'S DAUGHTER INFO IS: [phone]. THIS RN WILL PASS ALONG INFO TO NOC. NO OTHER CONCERNS AT THIS TIME.
[2020-08-03] VITALS (7 sets, daily range): BP systolic 154–181; BP diastolic 72–98; PULSE 60–66; RESP 16–18; TEMP 36.7–37.1; O2SAT 97–99; BMI 22.6; BMI 22.8
--- NOTE | 2020-08-03 04:32 | PC.NURSE ---
Pt. able to state name and ; unable to state situation or location. Intermittent periods of confusion noted with pt. attempting to get oob without assistance; safety measures applied. lue elevated with +1 non pitting edema, yellow/purple bruising noted. Pt. c/o dysuria, urine orange in color. No n/v/d, soa or dizziness reported.
[2020-08-03 06:12] LABS: Chloride 109 mmol/L (98-107); Potassium 3.7 mmoL/L (3.5-5.1); Sodium 135 mmol/L (136-145)
[2020-08-03 06:15] LABS: Anion Gap 8.7 mEq/L (5-15); Basophils % 0.4 % (0.1-2.0); Blood Urea Nitrogen 24 mg/dl (9-20); Carbon Dioxide 21 mmol/L (22.0-30.0); Creatinine Clearance Estimated 49 mL/min (50-200); Eosinophils # 0.2 K/mm3 (0.0-0.4); Eosinophils % 4.2 % (0.1-12.0); Estimated Glomerular Filt Rate 59 ml/min (>60); GFR (African American) 71 ML/MIN (>60); Hematocrit 30.9 % (42.0-52.0); Hemoglobin 10.3 g/dL (14.1-18.0); Lymphocytes # 0.6 K/mm3 (0.7-4.5); Lymphocytes % 15.8 % (10-50); Mean Corpuscular HGB Conc 33.4 g/dL (31.8-35.4); Mean Corpuscular Hemoglobin 34.7 pg (27.0-31.2); Mean Corpuscular Volume 103.8 fl (80-94); Mean Platelet Volume 8.5 fl (7.4-10.4); Monocytes # 0.2 K/mm3 (0.1-1.0); Monocytes % 5.7 % (1.7-9.3); Neutrophils # 2.7 K/mm3 (1.8-7.8); Platelet Count 104 K/mm3 (142-424); Red Blood Count 2.98 M/mm3 (4.60-6.20); Red Cell Distribution Width 14.1 % (11.5-17.5); White Blood Count 3.6 K/mm3 (4.8-10.8)
[2020-08-03 06:16] LABS: Glucose 86 mg/dl (74-100)
[2020-08-03 06:51] LABS: Calcium 8.2 mg/dl (8.4-10.2)
--- NOTE | 2020-08-03 07:56 | HMH.PHAINT ---
MEDICATION RECONCILIATION COMPLETED ON PATIENT USING EXTERNAL FILL HISTORY FROM PHARMACY. -JAMES SADLER, ISAIASD
--- NOTE | 2020-08-03 08:00 | CA_ITS ---
APPROVED REPORT EXAM: Comprehensive 2D, Doppler, and color-flow Echocardiogram Accounts Receivable Clerk: Kristin Ray CRT Ht: 5 ft 7 in Wt: 145lbs BSA: 1.76 BP: 111/55 mmHg Indications: Atrial Fibrillation, Hyperlipidemia, Hypertension/HDD, parkinson 2D Dimensions LVOT 1.94 cm (M/F) 1.5-2.5 M-Mode Dimensions RVDd 2.64 cm (0.9-2.6) LA Diam 4.38 cm (1.9-4.0) LVDd 5.99 cm (3.5-5.7) Ao Diam 4.34 cm (2.0-3.7) LVDs 4.68 cm (3.5-5.7) IVSd 1.77 cm (0.6-1.1) PWd 0.70 cm (0.6-1.1) EF (Teich) 43.50% FS 21.90% EDV (Teich) 179.30 mL ESV (Teich) 101.30 mL LV Diastology E Decel Time 143.00 (160-240 msec) E/A Ratio 1.29 MED E' 4.70 (< 7 cm/sec) E'/MED E' Ratio 49.51 (>14) LAT E' 5.70 (<10 cm/sec) E/LAT E' Ratio 40.82 (>14) Aortic Valve AI PHT 456.00 ms AO Peak GR. 9.10 mmHg Mitral Valve MV E Max Otf. 233.00 (40-130 cm/s) MV A Velocity 180.00 (40-130 cm/s) E/A Ratio 1.29 MV Decel. Time 143.00 (160-240 ms) MV PHT 42.00 ms Pulmonary Valve PV Peak Velocity 159.00 (50-150 cm/s) Tricuspid Valve TR P. Velocity 382.00 cm/s RAP Estimate 10.00 mmHg RVSP 68.30 mmHg Left Ventricle Left atrium is moderately enlarged, left ventricle is normal size, mild concentric left ventricular hypertrophy, visually estimated ejection fraction 35 to 40%, ejection fraction measured by Beaver's method is 37%. Left ventricle is globally hypokinetic, grade 2 diastolic dysfunction seen with tissue Doppler evidence of raise left atrial pressure. Right Ventricle Right atrium and right ventricle is normal size and contractility. Aortic Valve Aortic valve is thickened and calcified there is no aortic stenosis, there is mild aortic insufficiency. Mitral Valve Mitral valve leaflets are minimally thickened, there is mild mitral regurgitation. Tricuspid Valve Tricuspid valve is grossly normal, there is mild tricuspid regurgitation. Pulmonic Valve Pulmonic valve is poorly visualized. Great Vessels Aortic root is normal size. Pericardium No significant pericardial effusion noted. Conclusion 1. Moderately enlarged left atrium, normal left ventricular size, mild concentric left ventricular hypertrophy, visually estimated ejection fraction approximately 35 to 40%, measured ejection fraction is 37%, left ventricle is mildly globally hypokinetic. Grade 2 diastolic dysfunction seen with tissue Doppler evidence of raise left atrial pressure. 2. Mild aortic, mild mitral and tricuspid regurgitation. 3. No significant pericardial effusion noted. Electronically signed by : Costa Rodriguez, 08/04/2020 05:53:51
--- NOTE | 2020-08-03 08:08 | HMH.PHAINT ---
MED REC-COMPARED MED LIST TO FILL HX. PATIENT IS SERVICE PATIENT FOR DR. SOLOMON. SEES DR. NOLASCO FOR PARKINSON'S.
--- NOTE | 2020-08-03 08:13 | HMH.ACPN2 ---
<Chapis Mack - Last Filed: 08/03/20 08:13> Internal Medicine - PN: Subj *Date: 08/03/20 *Time: 08:13 Interval history: He is sitting up in bed eating breakfast. He denies any nausea but does report decreased appetite. He does have some discomfort in his left arm which he reports is mainly with movement. Exam Vital signs and Labs for Last 24 Hours: Temp Pulse Resp BP Pulse Ox 98.4 F 66 18 181/72 H 98 08/03/20 07:31 08/03/20 07:31 08/03/20 07:31 08/03/20 07:31 08/03/20 07:31 Laboratory Results - last 24 hr 08/03/20 05:50: WBC 3.6 L, RBC 2.98 L, Hgb 10.3 L, Hct 30.9 L, MCV 103.8 H, MCH 34.7 H, MCHC 33.4, RDW 14.1, Plt Count 104 L, MPV 8.5, Neut % (Auto) 74.0, Lymph % (Auto) 15.8, Glynn % (Auto) 5.7, Eos % (Auto) 4.2, Baso % (Auto) 0.4, Neut # (Auto) 2.7, Lymph # (Auto) 0.6 L, Glynn # (Auto) 0.2, Eos # (Auto) 0.2, Baso # (Auto) 0.0 08/03/20 05:50: Sodium 135 L, Potassium 3.7, Chloride 109 H, Carbon Dioxide 21 L, Anion Gap 8.7, BUN 24 H, Creatinine 1.20 D, Estimated Creat Clear 49, Estimated GFR 59, Est GFR ( Amer) 71 D, Glucose 86, Calcium 8.2 L D, Magnesium 2.0 I & O for Last 24 hours: Intake & Output 07/31/20 08/01/20 08/02/20 08/03/20 11:59 11:59 11:59 11:59 Intake Total 1532 / 1532 Output Total 610 / 610 Balance 922 / 922 Weight 147 lb 2 oz 144 lb 8 oz Microbiology Reports for the Last 24 Hours: Microbiology 08/02/20 05:30 Urine,Catheterized Urine Culture - Preliminary NO GROWTH AFTER 24 HOURS - Constitutional no acute distress - *Routine HEENT Exam Head: Present: normocephalic, atraumatic ENT: Present: mucous membranes moist - *Routine Respiratory Exam Present: CTA bilaterally - *Routine Cardiovascular Exam Present: RRR - *Routine Abdominal Exam Present: soft, normoactive bowel sounds. Absent: tenderness, distended, guarding, firm, rigid, mass - *Routine Extremities Exam Present: CHERISE stockings. Absent: calf tenderness Comments: significant edema of the LUE with old yellowish bruising throughout and dependent ecchymosis along the volar aspect; no BLE edema - *Routine Neurological Exam Present: alert he is oriented to person and place, speech is slightly garbled Assessment and Plan (1) Generalized weakness Status: Acute Category: Medical Code(s): R53.1 - Weakness (2) Dehydration Status: Acute Category: Medical Code(s): E86.0 - Dehydration (3) Chronic renal insufficiency Status: Acute Category: Medical Code(s): N18.9 - Chronic kidney disease, unspecified (4) Hypothyroidism Status: Acute Category: Medical Code(s): E03.9 - Hypothyroidism, unspecified (5) Parkinson's syndrome Status: Acute Category: Medical Code(s): G20 - Parkinson's disease (6) Pancytopenia Status: Acute Category: Medical Code(s): D61.818 - Other pancytopenia (7) Weight loss Status: Acute Category: Medical Code(s): R63.4 - Abnormal weight loss (8) Frequent falls Status: Acute Category: Medical Code(s): R29.6 - Repeated falls (9) Chronic atrial fibrillation Status: Acute Category: Medical Code(s): I48.20 - Chronic atrial fibrillation, unspecified (10) Ascending aortic aneurysm Status: Acute Category: Medical Code(s): I71.2 - Thoracic aortic aneurysm, without rupture (11) Abdominal mass Status: Acute Category: Medical Code(s): R19.00 - Intra-abdominal and pelvic swelling, mass and lump, unspecified site (12) HTN (hypertension) Status: Acute Qualifiers: Hypertension type: unspecified Qualified Code(s): I10 - Essential (primary) hypertension Category: Medical Code(s): I10 - Essential (primary) hypertension (13) Proximal humeral fracture Status: Acute Qualifiers: Encounter type: subsequent encounter Fracture type: closed Fracture morphology: unspecified fracture morphology Laterality: left Fracture healing: with routine healing Qual
--- NOTE | 2020-08-03 08:39 | CA_ITS ---
APPROVED REPORT Left Upper Extremity Venous Study for DVT. Riffler Tender: Kristin Ray CRT Indications Upper Extremity Pain: Left Upper Extremity Edema: Left Upper Extremity Swelling: Left Left humerus fx 07/27/20 Vein Imaging IJV (L): Normal phasic flow is seen. Normal flow, augmentation and compression is seen. No evidence of Deep Vein Thrombosis. No abnormalities are demonstrated. SCV (L): Normal phasic flow is seen. Normal flow, augmentation and compression is seen. No evidence of Deep Vein Thrombosis. No abnormalities are demonstrated. Axillary (L): Normal phasic flow is seen. Normal flow, augmentation and compression is seen. No evidence of Deep Vein Thrombosis. No abnormalities are demonstrated. Brachial (L): Normal phasic flow is seen. Normal flow, augmentation and compression is seen. No evidence of Deep Vein Thrombosis. No abnormalities are demonstrated. Basilic (L): Normal phasic flow is seen. Normal flow, augmentation and compression is seen. No evidence of Deep Vein Thrombosis. No abnormalities are demonstrated. Cephalic (L): Normal phasic flow is seen. Normal flow, augmentation and compression is seen. No evidence of Deep Vein Thrombosis. No abnormalities are demonstrated. Radial (L): Normal phasic flow is seen. Normal flow, augmentation and compression is seen. No evidence of Deep Vein Thrombosis. No abnormalities are demonstrated. Ulnar (L): Normal phasic flow is seen. Normal flow, augmentation and compression is seen. No evidence of Deep Vein Thrombosis. No abnormalities are demonstrated. Findings LUE negative for DVT/SVT. Vessels compressible. Conclusion LUE negative for DVT/SVT. Vessels compressible. Electronically signed by : Jeffrey Alcantara MD 08/04/2020 16:51:37
--- NOTE | 2020-08-03 09:43 | HMH.OTEV ---
OT Inpatient Evaluation Rehab OT IP Evaluation Start: 08/02/20 08:39 Freq: ONCE Status: Complete Protocol: Document 08/03/20 09:39 DAYAMINAILA (Rec: 08/03/20 09:43 DAYAMINAILA [id number]) Rehab OT IP Assessment Subjective History Mr. Dent is a 75-year-old white male with a history of hypothyroidism, hypertensive heart disease, chronic atrial fibrillation, Parkinson's syndrome, and an as yet undetermined abdominal mass suspicious for carcinoma. He apparently has had multiple falls at home, most recently being seen in the ER on 2019 with a left proximal humeral fracture. He was discharged from the ER but over the past week has not done well at home. He was brought back to the ER early this morning because of progressive weakness, increased confusion, poor oral intake, and worsening pain and swelling of his left arm. He apparently had not been compliant with wearing his arm sling. He was evaluated in the ER and noted to be weak and perhaps a bit dehydrated based on labs . Left arm showed marked swelling and ecchymosis with concern for possible DVT. It appeared that his was having difficulty caring for him at home. He has been admitted for IV fluid hydration, further evaluation of his arm swelling with a venous Doppler, and care management consult for assistance at home versus possible placement. Subjective I don't feel like getting up right now. Objective Patient Orientation Person,Place,Time,Name,Age, Birthday,Day of Month,Month, Year,Situation Feeding Ability Assist with Tr
--- NOTE | 2020-08-03 09:53 | SW/DCPLANNER ---
CALLED THE OF THIS PATIENT TO DISCUSS DISCHARGE PLANNING AND SHE REFERRED ME TO HER DAUGHTER, MARTINEZ GLASS THEY ARE NOT SURE WHAT THE PLAN IS FOR MR WALKER YET.. SHE IS PLANNING TO SPEAK WITH OTHER FAMILY MEMBERS TO SEE WHAT THEY WANT TO DO.. I EXPLAINED TO HER THAT OUR PT FELT HE NEEDED PLACEMENT.. SHE STATED HE DOES HAVE SOME HELP WITH FAMILY BUT NOT ALL THE TIME. SHE STATED THE HAS PARKINSONS AND IS NOT ABLE TO DO MUCH AT HOME.. SHE IS GOING TO CALL ME BACK TO WHETHER HE WILL GO HOME OR NEED PLACEMENT..
--- NOTE | 2020-08-03 10:26 | HMH.PTEV ---
Physical Therapy Evaluation Rehab PT IP Evaluation Start: 08/02/20 08:39 Freq: ONCE Status: Active Protocol: Document 08/03/20 08:30 PHORNE (Rec: 08/03/20 10:26 PHORNE [id number]) Subjective/History History History 75 yowm adm to [facility] with hx of multiple falls and generalized weakness. He has L humerus fx after a recent fall and has been reluctant to wear his sling. He lives with his . He has PMH of Parkinson's disease at baseline. Subjective Subjective Pt c/o pain in L arm. Rehab PT IP Eval Objective Appearance Patient Behavior Appropriate Patient Orientation Person,Place,Time Difficulty following instructions none Speech Pattern Clear Ambulation Patient Able to Ambulate Yes Ambulation Observation IP General Gait Pattern Observation Wide Based Gait,Shuffling Step Ambulation Distance (feet) 3 Ambulation Assistive Device None Ambulation Ability Minimal x 1 (25% assist) Balance Ability to Arise Able, uses arms to help Sitting Balance Steady, safe Standing Balance Unsteady Dynamic Sitting Balance Ability Fair Dynamic Standing Balance Ability Poor Transfers Bed Transfer Ability Contact Guard/Hand Hold Chair Transfer Ability Contact Guard/Hand Hold Sit to Stand Bed Transfer Ability Contact Guard/Hand Hold Sit to Stand Chair Transfer Ability Contact Guard/Hand Hold ROM All Extremities PT ROM Status WFL Abnormal ROM Comment except L UE NT MMT All Extremities PT MMT WFL Abnormal MMT Grade except L UE NT Rehab PT IP prob,goals,plan Problems Date of Evaluation: 08/03/20 PT IP Problems Bed Mobility,Transfers,Gait, Balance,Self care Rehab Potential Rehab Potential Fair Plan PT Intervention Plan Bed Mobility,Transfers,Gait, Balance,Self care,Safety, Therapeutic Exercise PT Plan Frequency BID Duration LOS Discharge Goals Bed Transfer Ability Contact Guard/Hand Hold Sit to Stand Chair Transfer Ability Contact Guard/Hand Hold Ambulation Assistive Device Small Base Quad Cane Ambulation Distance (feet) 10 Discharge Plan PT Discharge Plan Pt is currently most appropriate for rehab placement once medically stable, but could return home
--- NOTE | 2020-08-03 11:13 | XR_ITS ---
PROCEDURE: XR SHOULDER LT MIN 2V CLINICAL INDICATION: L proximal humerus fracture Follow-up fracture COMPARISON: CR XR SHOULDER LT MIN 2V from 07/27/2020 FINDINGS: Nondisplaced impacted fracture once again noted involving the neck of the humerus overall not significantly changed. The humeral head remains in place. There are mild osteoarthritic changes. Other findings:None. IMPRESSION: No change nondisplaced mildly impacted humeral neck fracture Dictated by: Jeffrey Alcantara MD 08/03/2020 12:04 Jeffrey Alcantara MD in [place] 08/03/2020 12:04
--- NOTE | 2020-08-03 11:52 | HMH.ORTHOCON ---
*Admission Date: 08/02/20 *Reason for consult:: L proximal humerus fracture *History of present illness: 75-year-old male admitted yesterday through the ER with a left proximal humerus fracture. He has a history of hypothyroidism, hypertension, heart disease, chronic atrial fibrillation, Parkinson syndrome. He has an abdominal mass suspicious for carcinoma, scheduled for biopsy at on Monday. He has had multiple falls at home recently, and was seen in the ER on 07/27/2020, at which time his proximal humerus fracture was diagnosed. I was notified, and had plan on seeing him in the clinic, but multiple calls went on answered and we were not able to schedule him. He was brought back to the ER by his family yesterday due to progressive weakness, increased confusion, poor oral intake and worsening swelling of the arm. He has not been wearing a sling at home. When I interviewed him, he appears confused and often repeats phrases and questions. Reports pain in the left shoulder but denies numbness or tingling in the left arm. He does not like the idea of wearing a sling. [facility] History I have reviewed the patient's past medical history: Yes Medical History: Reports:: Anxiety, Atrial Fibrillation, BPH, Depression, Gall Bladder Disease (Cholelithiasis), Hyperlipidemia, Hypertension Denies:: Cancer, Diabetes Mellitus Type 1, Diabetes Mellitus Type 2, Internal Pacemaker, MRSA, Seizures *Have you ever received a pneumonia vaccine?: Yes *Have you received a flu vaccine this season?: Yes Other Medical History: Reports: Arthritis, Hypothyroidism, Other (Parkinson's syndrome, abdominal mass, weight loss, mild cognitive impairmen) Other Surgeries: Yes: No Previous Surgery, Cardiac Catheterization, Colonoscopy, Other (vasectomy). No: Pacemaker Amputation: No Fractures: No - *Social History Smoking Status: Never smoker Tobacco Type: cigars # Packs/Day (cigarettes): 1 Alcohol Intake: never Alcohol Intake Frequency:: a few times a week Substance Use Type: denies use *Occupational Status:: disabled Housing: house Household Members: spouse *Travel in the last 8 weeks: None - Psychiatric History Pschychiatric History:: Reports:: Anxiety, Depression Family Hx:: Unable to obtain Review of Systems - Review of Systems Review of systems:: pertinent systems reviewed and negative unless documented below - *Neurologic Reports abnormal walking, Reports confusion, Reports unsteadiness, Reports frequent falls, Reports weakness, Denies abnormal hearing, Denies headache(s), Denies seizure-like activity Meds Home Medications Medication Instructions Recorded Confirmed Type PARoxetine HCL [Paxil 20mg Tablet] 20 mg PO DAILY 01/14/19 08/02/20 History Tamsulosin HCl [Flomax 0.4mg 0.4 mg PO HS 01/14/19 08/02/20 History capsule] ALPRAZolam [Xanax 0.5mg tab] 0.5 mg PO BID 01/15/19 08/02/20 History Loratadine [Claritin] 10 mg PO DAILY 01/15/19 08/02/20 History carvediloL [Coreg 12.5mg 12.5 mg PO BID 07/29/19 08/02/20 History Tablet] lisinopriL [Lisinopril 10mg Tab] 10 mg PO DAILY 07/29/19 08/02/20 History Oxycodone HCl [Oxycodone 5mg tab 5 mg PO Q6HP PRN #10 tab 07/27/20 08/02/20 Rx (IR)] rotigotine 2 mg/24 hour 4 mg TRANSDERMA DAILY each 07/27/20 08/02/20 History transdermal 24 hour patch Prasugrel HCl [Effient 10mg tablet] 10 mg PO DAILY 08/02/20 08/02/20 History Aspirin [Aspirin 81mg EC Tab] 81 mg PO DAILY 08/03/20 08/03/20 History Levothyroxine Sodium [Euthyrox] 100 mcg PO DAILY 08/03/20 08/03/20 History Meclizine HCl 25 mg PO BIDP PRN 08/03/20 08/03/20 History Allergies Allergy/AdvReac Type Severity Reaction Status Date / Time acetaminophen AdvReac Gastrointestinal Verified 07/27/20 15:39 Upset Exam Vital signs and Labs for Last 24 Hours: Temp Pulse Resp BP Pulse Ox 98.0 F 61 18 173/74 H 99 08/03/20 11:36 08/03/20 11:36 08/03/20 11:36 08/03/20 11:36 08/03/20 11:36 Laboratory Results - last 2
--- NOTE | 2020-08-03 12:15 | PC.NURSE ---
Called the patient's stepdaughter Daya and she states patient has a sling at home. Will notify Care Management.
--- NOTE | 2020-08-03 14:40 | PC.NURSE ---
PHARMACY EDUCATED PT AND ON HOME MEDICATIONS. I DISCUSSED DISCHARGE INSTRUCTIONS INCLUDING FOLLOW UP APPOINTMENT W PT AND GRANDSON. GRANDSON STATES SEVERAL FAMILY MEMBERS WILL BE TAKING TURNS STAYING W PT UNTIL PT IS WELL. IV WAS REMOVED W CATHETER INTACT. KOBAN AND 4X4S APPLIED. HOME MEDS RETURNED TO PT. PT IS CURRENTLY IN CHAIR WITH CALL LIGHT WITHIN REACH. BED ALARM ON TO PROMOTE SAFETY. VSS. WILL CONTINUE TO MONITOR.
--- NOTE | 2020-08-05 13:06 | HMH.DCSUM ---
General - General Admission date:: 08/02/20 <Davis Arita - 08/16/20 22:09> 08/02/20 <Ashley Jaquez - 08/05/20 13:12> Discharge date: 08/03/20 <GiseleAshley - 08/05/20 13:12> HPI HPI: Mr. Dent is a 75-year-old white male with a history of hypothyroidism, hypertensive heart disease, chronic atrial fibrillation, Parkinson's syndrome, and an as yet undetermined abdominal mass suspicious for carcinoma. He apparently has had multiple falls at home, most recently being seen in the ER on 07/27/2020 with a left proximal humeral fracture. He was discharged from the ER but over the past week has not done well at home. He was brought back to the ER early this morning because of progressive weakness, increased confusion, poor oral intake, and worsening pain and swelling of his left arm. He apparently had not been compliant with wearing his arm sling. He was evaluated in the ER and noted to be weak and perhaps a bit dehydrated based on labs. Left arm showed marked swelling and ecchymosis with concern for possible DVT. It appeared that his was having difficulty caring for him at home. He has been admitted for IV fluid hydration, further evaluation of his arm swelling with a venous Doppler, and care management consult for assistance at home versus possible placement. He follows with Dr. Ritter for Parkinson's syndrome and also with Dr. Tsai for his abdominal mass. A recent endoscopic ultrasound biopsy was inconclusive but suspicious for carcinoma with surgical biopsy recommended. He apparently has been scheduled at for surgical biopsy on 08/05/2020. <Ashley Jaquez - 08/05/20 13:12> Hospital Course Hospital Course: The patient's chest x-ray showed cardiomegaly but nothing acute. He had a head CT showing nothing acute. He had a cervical spine CT showing multilevel cervical spondylosis, but no acute fracture. He was admitted for IV hydration for his acute on chronic renal insufficiency and a Doppler was ordered of his left arm to rule out a DVT following his recent humeral fracture. PT and OT were also ordered to assess for post discharge needs. The patient's Doppler was negative for DVT. He had an echo showing an EF of 35 to 40% with grade 2 diastolic dysfunction. His renal function improved with hydration. The swelling in his left arm improved as well. Orthopedics was consulted and Dr. Baca felt the fracture should heal well nonoperatively. She recommended a sling for the left upper extremity and would follow-up with him in her clinic in 1 to 2 weeks. Physical therapy saw the patient and felt he was most appropriate for rehab placement when medically stable, however he could return home with his if she was able to offer assistance. The patient was stable to be discharged home and he will follow up with both Dr. Tsai and Dr. Baca. <Ashley Jaquez - 08/05/20 13:12> Objective Vital signs: Temp Pulse Resp BP Pulse Ox 98.0 F 60 18 173/74 H 99 08/03/20 11:36 08/03/20 12:00 08/03/20 11:36 08/03/20 11:36 08/03/20 11:36 <Juan JDavis Cosme - 08/16/20 22:09> Temp Pulse Resp BP Pulse Ox 98.0 F 60 18 173/74 H 99 08/03/20 11:36 08/03/20 12:00 08/03/20 11:36 08/03/20 11:36 08/03/20 11:36 <Ashley Jaquez - 08/05/20 13:12> Narrative: - Constitutional no acute distress - *Routine HEENT Exam Head: Present: normocephalic, atraumatic ENT: Present: mucous membranes moist - *Routine Respiratory Exam Present: CTA bilaterally - *Routine Cardiovascular Exam Present: RRR - *Routine Abdominal Exam Present: soft, normoactive bowel sounds. Absent: tenderness, distended, guarding, firm, rigid, mass - *Routine Extremities Exam Present: CHERISE stockings. Absent: calf tenderness Comments: significant edema of the LUE with old yellowish bruising throughout and dependent ecchymosis along the volar aspect; no BLE edema - *Routine Neurological Exam Present:
== END 2020-08-03 14:45 | disposition home or self-care (01) ==
LOC: ER 08:20 → 2ND 08-03 08:51
PROVIDERS: Admitting Provider Family Medicine; Emergency Provider Emergency Medicine; PCP Nurse Practitioner; Visit Provider Family Medicine
DX: E86.0 Dehydration (principal); S42.202D Unspecified fracture of upper end of left humerus, subsequent encounter for fracture with routine healing; I48.20 Chronic atrial fibrillation, unspecified; Z79.01 Long term (current) use of anticoagulants; Z79.82 Long term (current) use of aspirin; Z79.899 Other long term (current) drug therapy; I11.9 Hypertensive heart disease without heart failure; E78.5 Hyperlipidemia, unspecified; G20 Parkinson's disease; F41.8 Other specified anxiety disorders; I71.2 Thoracic aortic aneurysm, without rupture; R29.6 Repeated falls; E03.9 Hypothyroidism, unspecified; F02.80 Dementia in other diseases classified elsewhere, unspecified severity, without behavioral disturbance, psychotic disturbance, mood disturbance, and anxiety; C76.2 Malignant neoplasm of abdomen
CPT/HCPCS: 36415; 70450; 71045; 72125; 73030; 80048; 80053; 81001; 83735; 84436; 84443; 84484; 85025; 86328; 87086; 87581; 87633; 87798; 93005; 93306; 93971; 96365; 96367; 96375; 97163; 97165; 97530; 99284; G0378; J2405

== ENCOUNTER → 2020-08-17 10:20 | Outpatient (CLI) | payer MEDICARE, OTHER, SELFPAY ==
--- NOTE | 2020-08-17 10:31 | XR_ITS ---
PROCEDURE: XR SHOULDER LT MIN 2V CLINICAL INDICATION: proximal humerus fracture Follow-up fracture COMPARISON: CR XR SHOULDER LT MIN 2V from 07/27/2020 CR XR SHOULDER LT MIN 2V from 08/03/2020 FINDINGS: Nondisplaced fracture involves the humeral neck on the left with mild impaction of the fracture fragments. Fracture line is still visible with overall no significant change. IMPRESSION: No change nondisplaced mildly impacted left humeral neck fracture Dictated by: Jeffrey Alcantara MD 08/17/2020 16:43 Jeffrey Alcantara MD in [place] 08/17/2020 16:43
== END ==
PROVIDERS: PCP Nurse Practitioner; Visit Provider Orthopaedic Surgery
DX: S42.209A Unspecified fracture of upper end of unspecified humerus, initial encounter for closed fracture (principal)
CPT/HCPCS: 73030

== ENCOUNTER 2020-08-22 20:49 | Observation (INO) | payer MEDICARE, OTHER, SELFPAY ==
[2020-08-22] VITALS (7 sets, daily range): BP systolic 109–137; BP diastolic 49–66; PULSE 54–72; RESP 16–29; TEMP 36.6–36.7; O2SAT 95–97; BMI 23.5; BMI 22.3
--- NOTE | 2020-08-22 20:49 | HMH.EDGENADL ---
ED Disposition Clinical Impression: Debility CHF exacerbation Qualifiers: Heart failure type: unspecified Qualified Code(s): I50.9 - Heart failure, unspecified Disposition: Admitted as Observation Condition on Discharge: Fair - Critical Care Critical Care Time: No Attestation: On , the high probability of a clinically significant, sudden or life threatening deterioration of the following system(s) required my full and direct attention, intervention and personal management. The time I documented below is in addition to time spent performing reported procedures but includes the following listed in this critical care notation. Medical Decision Making - Ron Inquiry Pt receiving controlled substance: No Vital Signs: 08/22/20 20:48 Temperature 98.1 F Temperature Source Oral Pulse Rate [Apical] 71 Respiratory Rate 28 H Blood Pressure [Right Arm] 136/66 Blood Pressure Mean [Right Arm] 89 Blood Pressure Source [Right Arm] Automatic Cuff Blood Pressure Position [Right Arm] Supine 02 Sat by Pulse Oximetry 96 Oxygen Delivery Method Room Air - Lab Data Lab Results 08/22/20 20:45: WBC 9.1, RBC 3.92 L, Hgb 13.4 L, Hct 40.4 L, MCV 103.1 H, MCH 34.2 H, MCHC 33.2, RDW 14.0, Plt Count 135 L, MPV 8.8, Neut % (Auto) 93.1 H, Lymph % (Auto) 3.3 L, Ramsey % (Auto) 3.2, Eos % (Auto) 0.3, Baso % (Auto) 0.1, Neut # (Auto) 8.5 H, Lymph # (Auto) 0.3 L, Ramsey # (Auto) 0.3, Eos # (Auto) 0.0, Baso # (Auto) 0.0, Total Counted 100, Neutrophils % (Manual) 89 H, Band Neutrophils % 9.0 H, Lymphocytes % (Manual) 1 L, Monocytes % (Manual) 1 L, Platelet Estimate Normal, Macrocytosis 2+, Rouleaux 1+ 08/22/20 20:45: Sodium 136, Potassium 4.0, Chloride 102, Carbon Dioxide 24, Anion Gap 14.0, BUN 25 H, Creatinine 1.30 H, Estimated Creat Clear 47, Estimated GFR 54 L, Est GFR ( Amer) 65, Glucose 137 H, Calcium 9.4, Total Bilirubin 1.1, AST 37, ALT 18, Alkaline Phosphatase 141 H, Troponin I 0.02, Total Protein 8.9 H, Albumin 3.9, Globulin 5.0 H, Albumin/Globulin Ratio 0.8 L 08/22/20 20:45: Lactate 2.0 08/22/20 20:45: SARS-CoV-2 IgG Ab (Rapid) Negative, SARS-CoV-2 IgM Ab (Rapid) Negative 08/22/20 20:45: PT 13.4 H, INR 1.23 H 08/22/20 20:45: NT-Pro-B Natriuret Pep 81214 H 08/22/20 20:51: POC Glucose 133 H 08/22/20 23:10: Urine Color Dk yellow, Urine Appearance Clear, Urine pH 6.0, Ur Specific [place] >= 1.030, Urine Protein 2+, Urine Glucose (UA) Negative, Urine Ketones Negative, Urine Blood Negative, Urine Nitrate Negative, Urine Bilirubin Negative, Urine Urobilinogen 1.0, Ur Leukocyte Esterase Negative, Urine WBC 20-50, Urine Bacteria 2+, Urine Mucus 4+ Result diagrams: 08/22/20 20:45 08/22/20 20:45 Orders (Tests/Meds): ED MEDICATIONS Generic Name Dose Route Start Last Admin Trade Name Freq PRN Reason Stop Dose Admin Sodium Chloride 1,000 mls @ 500 mls/hr 08/22/20 22:45 08/22/20 23:00 Sod Chlor 0.9% 1000ml Bag IV 09/21/20 22:44 500 mls/hr .Q2H WILLI Administration Discontinued Medications Generic Name Dose Route Start Last Admin Trade Name Freq PRN Reason Stop Dose Admin Furosemide 20 mg 08/22/20 23:29 08/22/20 23:46 Furosemide 20 Mg/2 Ml Vial IV 08/22/20 23:30 20 mg ONCE ONE Administration ORDERS Category Date Time Status Troponin I Q3H Lab 08/23/20 00:15 Ordered Troponin I Q3H Lab 08/23/20 03:15 Ordered Blood Culture Stat Micro 08/22/20 20:45 Received Urine Culture Stat Micro 08/22/20 23:10 Received - ECG Data Tracing #1 Sinus rhythm with first-degree AV block. 72 bpm. No ectopy, no ST elevation or depression. Normal Sinus Rhythm: Yes Medical Decision Narrative: 75yo M with new diagnosis of cancer. Remains undifferentiated at this time as he is pending his biopsy results. Patient CBC and CMP are largely unremarkable. He is noted to have a BNP of 29,000 without previous study for comparison. EKG shows sinus rhythm with first-degree AV block and is otherwise unremarkable. Patient
[2020-08-22 21:02] LABS: POC Glucose,Bedside 133 (70-110)
--- NOTE | 2020-08-22 21:03 | ECG_ITS ---
APPROVED REPORT Exam: Resting ECG HR:72 bpm ECG Measurements Heart Rate 72 AXES ND 230 P 24 QRSd 86 QRS 11 QT 420 T 53 QTc 459 Conclusion Sinus rhythm with 1st degree AV block Otherwise normal ECG Electronically signed by : Kni Bustillo, 08/23/2020 13:14:29
--- NOTE | 2020-08-22 21:03 | XR_ITS ---
PROCEDURE: XR CHEST PORTABLE CLINICAL HISTORY: SOA COMPARISON: CR Chest from 01/14/[address] CHEST WO CON from 06/23/2020 CR XR CHEST PORTABLE from 08/02/2020 FINDINGS: Hypoventilation. Mild cardiomegaly. Mild prominence of the mediastinum Minimal atelectatic change left midlung. No lobar consolidation or collapse. Cholelithiasis IMPRESSION: Cardiomegaly with mild prominence of the mediastinum and minimal atelectatic change in the left midlung Cholelithiasis Dictated by: Jeffrey Alcantara MD 08/22/2020 23:53 Jeffrey Alcantara MD in [place] 08/22/2020 23:53
[2020-08-22 21:16] LABS: Basophils % 0.1 % (0.1-2.0); Eosinophils % 0.3 % (0.1-12.0); Hematocrit 40.4 % (42.0-52.0); Hemoglobin 13.4 g/dL (14.1-18.0); Lymphocytes # 0.3 K/mm3 (0.7-4.5); Lymphocytes % 3.3 % (10-50); Mean Corpuscular HGB Conc 33.2 g/dL (31.8-35.4); Mean Corpuscular Hemoglobin 34.2 pg (27.0-31.2); Mean Corpuscular Volume 103.1 fl (80-94); Mean Platelet Volume 8.8 fl (7.4-10.4); Monocytes # 0.3 K/mm3 (0.1-1.0); Monocytes % 3.2 % (1.7-9.3); Neutrophils # 8.5 K/mm3 (1.8-7.8); Neutrophils % 93.1 % (37.0-80.0); Platelet Count 135 K/mm3 (142-424); Red Blood Count 3.92 M/mm3 (4.60-6.20); White Blood Count 9.1 K/mm3 (4.8-10.8)
[2020-08-22 21:23] LABS: Alanine Aminotransferase 18 U/L (12-78); Albumin Level 3.9 g/dl (3.5-5.0); Albumin/Globulin Ratio 0.8 (1.1-1.8); Alkaline Phosphatase 141 U/L (38-126); Aspartate Amino Transferase 37 U/L (17-59); Bilirubin,Total 1.1 mg/dl (0.2-1.3); Blood Urea Nitrogen 25 mg/dl (9-20); Calcium 9.4 mg/dl (8.4-10.2); Carbon Dioxide 24 mmol/L (22.0-30.0); Chloride 102 mmol/L (98-107); Creatinine Clearance Estimated 47 mL/min (50-200); Estimated Glomerular Filt Rate 54 ml/min (>60); GFR (African American) 65 ML/MIN (>60); Glucose 137 mg/dl (74-100); Sodium 136 mmol/L (136-145); Total Protein,Serum 8.9 g/dl (6.3-8.2)
[2020-08-22 21:24] LABS: INR 1.23 (0.9-1.1); Prothrombin Time 13.4 seconds (9.4-11.8)
[2020-08-22 21:26] LABS: MANUAL DIFFERENTIAL MANUAL DIFFERENTIAL (MANUAL DIFF)
[2020-08-22 21:33] LABS: Coronavirus 19 IgG Antibody Negative (Negative); Coronavirus 19 IgM Antibody Negative (Negative)
[2020-08-22 21:35] LABS: Troponin I 0.02 ng/ml (0.00-0.034)
[2020-08-22 21:36] LABS: Lymphocytes % 1 % (10-50); Monocytes % 1 % (2-9); Neutrophils % 89 % (42-76); Total Cells Counted 100
[2020-08-22 21:37] LABS: Macrocytosis 2+; Platelet Estimate Normal; Rouleaux 1+
[2020-08-22 22:44] LABS: NT Pro Brain Natriuretic Pep. 29000 pg/mL (0-450)
[2020-08-22 23:14] LABS: Appearance,Urine CLEAR (Clear); Blood, Urine Negative (Negative); Color,Urine DK YELLOW (Yellow); Glucose,Urine (UA) Negative (Negative); Ketones,Urine Negative (Negative); Leukocyte Esterase,Urine Negative (Negative); Microscopic, Urine URINE MICROSCOPIC (MICROSCOPIC); Nitrate,Urine Negative (Negative); Protein,Urine 2+ (Negative); Specific Gravity, Urine >= 1.030 (1.005-1.030)
--- NOTE | 2020-08-22 23:15 | PC.NURSE ---
UA was a cath collection
[2020-08-22 23:18] LABS: Bilirubin,Urine Negative (Negative)
[2020-08-22 23:19] LABS: Bacteria,Urine 2+ /lpf; Mucus,Urine 4+ /lpf; WBC,Urine 20-50 #/hpf (0-3)
[2020-08-23] VITALS (25 sets, daily range): BP systolic 90–170; BP diastolic 40–86; PULSE 45–72; RESP 16–28; TEMP 36.3–37.6; O2SAT 96–100
--- NOTE | 2020-08-23 00:40 | PC.NURSE ---
patient up to floor via stretcher.
[2020-08-23 00:45] LABS: Troponin I 0.02 ng/ml (0.00-0.034)
[2020-08-23 04:17] LABS: Basophils % 0.1 % (0.1-2.0); Eosinophils % 0.5 % (0.1-12.0); Hemoglobin 12.5 g/dL (14.1-18.0); Lymphocytes # 0.3 K/mm3 (0.7-4.5); Lymphocytes % 5.8 % (10-50); Mean Corpuscular HGB Conc 32.8 g/dL (31.8-35.4); Mean Corpuscular Hemoglobin 34.6 pg (27.0-31.2); Mean Corpuscular Volume 105.2 fl (80-94); Mean Platelet Volume 8.8 fl (7.4-10.4); Monocytes # 0.1 K/mm3 (0.1-1.0); Monocytes % 1.5 % (1.7-9.3); Neutrophils % 92.2 % (37.0-80.0); Platelet Count 101 K/mm3 (142-424); Red Blood Count 3.61 M/mm3 (4.60-6.20); Red Cell Distribution Width 14.4 % (11.5-17.5); White Blood Count 4.4 K/mm3 (4.8-10.8)
[2020-08-23 04:36] LABS: Chloride 104 mmol/L (98-107)
[2020-08-23 04:37] LABS: Potassium 3.6 mmoL/L (3.5-5.1); Sodium 137 mmol/L (136-145)
[2020-08-23 04:39] LABS: Anion Gap 10.6 mEq/L (5-15); Blood Urea Nitrogen 25 mg/dl (9-20); Carbon Dioxide 26 mmol/L (22.0-30.0); Creatinine Clearance Estimated 45 mL/min (50-200); Estimated Glomerular Filt Rate 54 ml/min (>60); GFR (African American) 65 ML/MIN (>60)
[2020-08-23 04:40] LABS: Calcium 9.2 mg/dl (8.4-10.2); Glucose 122 mg/dl (74-100); Magnesium 1.9 mg/dl (1.6-2.3); Phosphorous 4.1 mg/dl (2.5-4.5)
[2020-08-23 04:51] LABS: Troponin I 0.02 ng/ml (0.00-0.034)
--- NOTE | 2020-08-23 06:44 | PC.NURSE ---
Pt is A&Ox3 and resting in bed. Pt has had 850 cc urine output plus 2 unmeasured incontinent episodes. Has not c/o soa or pain since arrival to floor. He does guard LUE. Swelling noted. Pt states he broke his arm 3 weeks ago. Pt has a Hx of falls. Some edema was also noted to BLE. VSS. Pt remains on RA. Has been sinus abdelrahman on telemetry. No other concerns at this time. Will continue to monitor.
--- NOTE | 2020-08-23 09:48 | HMH.HP ---
*Admission Date: 08/23/20 *Chief complaint: Weakness *History of present illness: 75-year-old male currently undergoing work-up for GI malignancy was brought to the hospital with approximately 3 to 4 days of fevers and malaise. Patient is unable to give much history this morning but does tell me his temperature was 100.2 at home. This has been confirmed by speaking with his who reports the patient had increasing weakness along with his fevers. She does not report any cough. His appetite has been poor. Patient had a hospitalization at this facility approximately 3 weeks ago for weakness and debility related to a left humeral fracture that is being treated nonoperatively. Patient has been seeing Dr. Tsai of the oncology service for the last 3 months due to weight loss and GI malignancy. Patient has Parkinson's disease and follows with Dr. Ritter. This morning the patient can provide very little history. Patient will respond to verbal stimulus but will quickly fall back asleep. Review of existing hospital records shows discovery of GI malignancy after a 20 to 30 pound weight loss that occurred rather rapidly. Patient is undergone endoscopic ultrasound guided biopsy that was inconclusive and surgical biopsy was recommended. Patient is undergone surgical biopsy at . The does not know results of the biopsy [facility] History I have reviewed the patient's past medical history: Yes Medical History: Reports:: Anxiety, Atrial Fibrillation, BPH, Cancer, Congestive Heart Failure, Depression, Gall Bladder Disease, Hyperlipidemia, Hypertension Denies:: Diabetes Mellitus Type 1, Diabetes Mellitus Type 2, Internal Pacemaker, MRSA, Seizures *Have you ever received a pneumonia vaccine?: No *Have you received a flu vaccine this season?: No Other Medical History: Reports: Arthritis, Hypothyroidism, Other (Cancer) Other Surgeries: Yes: No Previous Surgery, Cardiac Catheterization, Colonoscopy, Other (vasectomy). No: Pacemaker Amputation: No Fractures: Yes - *Social History Last grade of school completed: High school graduate Smoking Status: Never smoker Tobacco Type: cigars # Packs/Day (cigarettes): 1 Alcohol Intake: never Alcohol Intake Frequency:: a few times a week Substance Use Type: denies use *Occupational Status:: retired Housing: house Household Members: spouse *Travel in the last 8 weeks: None - Psychiatric History Pschychiatric History:: Reports:: Anxiety, Depression Family Hx:: Cancer, Hyperlipidemia, Hypertension, Thyroid Disorder Review of Systems - Review of Systems Review of systems:: unable to obtain Meds Home Medications Medication Instructions Recorded Confirmed Type PARoxetine HCL [Paxil 20mg Tablet] 20 mg PO DAILY 01/14/19 08/23/20 History Tamsulosin HCl [Flomax 0.4mg 0.4 mg PO HS 01/14/19 08/23/20 History capsule] ALPRAZolam [Xanax 0.5mg tab] 0.5 mg PO BID 01/15/19 08/23/20 History Loratadine [Claritin] 10 mg PO DAILY 01/15/19 08/22/20 History carvediloL [Coreg 12.5mg 12.5 mg PO BID 07/29/19 08/23/20 History Tablet] lisinopriL [Lisinopril 10mg Tab] 10 mg PO DAILY 07/29/19 08/23/20 History Oxycodone HCl [Oxycodone 5mg tab 5 mg PO Q6HP PRN #10 tab 07/27/20 08/22/20 Rx (IR)] Prasugrel HCl [Effient 10mg tablet] 10 mg PO DAILY 08/02/20 08/23/20 History Aspirin [Aspirin 81mg EC Tab] 81 mg PO DAILY 08/03/20 08/23/20 History Levothyroxine Sodium [Euthyrox] 100 mcg PO DAILY 08/03/20 08/23/20 History Meclizine HCl 25 mg PO BIDP PRN 08/03/20 08/22/20 History Rotigotine [Neupro] 6 mg TD DAILY 08/03/20 08/23/20 History Cetirizine HCl 10 mg PO DAILY 08/23/20 08/23/20 History Allergies Allergy/AdvReac Type Severity Reaction Status Date / Time acetaminophen AdvReac Gastrointestinal Verified 08/17/20 11:06 Upset Exam Vital signs and Labs for Last 24 Hours: Temp Pulse Resp BP Pulse Ox 99.2 F 55 L 20 100/43 L 97 08/23/20 08:00 08/23/20 08:00 08/23/20 08:00 08/23/20 08:
[2020-08-23 11:08] LABS: Lactic Acid 1.4 mmol/L (0.7-2.1)
[2020-08-23 11:20] LABS: C-Reactive Protein 129.1 mg/L (0-4)
--- NOTE | 2020-08-23 11:25 | P.CONPHA_ITS ---
[facility] Pharmacy VTE Monitoring - Patient Demographics Admission date: 08/23/20 Report Date: 08/23/20 Time: 11:00 Allergies/Adverse Reactions: Patient Allergies acetaminophen Adverse Reaction (Verified 08/17/20 11:06) Gastrointestinal Upset Height: 1.7 m Weight: 64.495 kg Patient Problems: Current Active Problems (This Medical Record has been edited. Action required.) Systolic congestive heart failure due to valvular disease (Acute) Proximal humeral fracture (Acute) COVID-19 virus IgG antibody detected (Acute) Generalized weakness (Acute) Hypothyroidism (Acute) Parkinson's syndrome (Acute) Ascending aortic aneurysm (Acute) CHF exacerbation (Acute) Debility (Acute) Acute on chronic systolic CHF (congestive heart failure) (Acute) GI malignancy (Acute) - VTE Risk Labs: VTE Related Lab Results Hgb 12.5 g/dL (14.1-18.0) L 08/23/20 04:05 Hct 38.0 % (42.0-52.0) L 08/23/20 04:05 Plt Count 101 K/mm3 (142-424) L D 08/23/20 04:05 PT 13.4 seconds (9.4-11.8) H 08/22/20 20:45 INR 1.23 (0.9-1.1) H 08/22/20 20:45 BUN 25 mg/dl (9-20) H 08/23/20 04:05 Creatinine 1.30 mg/dl (0.66-1.25) H 08/23/20 04:05 Estimated Creat Clear 45 mL/min (50-200) 08/23/20 04:05 VTE Risk Level: Low Risk - Prophylaxis Types of VTE Prophylaxis: IPCS Thigh High, IPCS Knee High (ICDS) Location of Applied Device: Bilateral Lower Extremeties
[2020-08-23 11:32] LABS: Procalcitonin 5.28 ng/mL (0.0-2.0)
--- NOTE | 2020-08-23 11:57 | PC.NURSE ---
THIS MORNING DURING ASSESSMENT PT WAS ALERT AND ORIENTED X3 AND WAS ABLE TO ANSWER ALL QUESTIONS BUT WAS VERY SLOW TO RESPOND. PT IS VERY DROWSY AND HAVING A DIFFICULT TIME STAYING AWAKE. BP AT THE TIME WAS 100/43. AT 0920 PT SEEMED TO BE EVEN MORE DROWSY. PT WAS ABLE TO GIVE VERBAL CONSENT TO GET HIS RECORDS FROM BUT WAS WAY TO WEAK TO SIGN FOR HIMSELF. MANUAL BP AT 0930 WAS 90/40. HR 45. TEMP 97.5. VERY DIAPHORETIC. PHYSICIAN NOTIFIED. IVF BOLUS WAS ORDERED. PT'S BP RESPONDED WELL TO THE IVF BOLUS. PHYSICIAN CALLED PT'S AND FOR NOW PT WILL REMAIN A FULL CODE. IF BP CONTINUES TO DECLINE PT CAN HAVE AN ADDITIONAL IVF BOLUS. IT BP CONTINUES TO DECLINE AFTER SECOND BOLUS THEN PT WILL NEED TO BE STARTED ON A LEVOPHED DRIP. PT HAS ONLY HAD THE ONE IVF BOLUS AND IV ROCEPHIN. CATHETER WAS INSERTED FOR ACCURATE I&O'S. 1200 BP 114/51. HR SINUS LEANNE 53 HR WILL OCCASIONALLY DROP TO THE 40'S. ORAL TEMP 97.5. PT CONTINUES TO BE VERY DROWSY.
[2020-08-23 15:25] LABS: Microscopic,Cath URINE MICROSCOPIC (MICROSCOPIC)
[2020-08-23 15:31] LABS: Appearance,Urine/Cath CLEAR (Clear); Bilirubin,Cath Negative (Negative); Blood, Urine/Cath TRACE-L (Negative); Color,Urine/Cath YELLOW (Yellow); Glucose,Urine/Cath (UA) Negative (Negative); Ketones,Urine/Cath Negative (Negative); Leukocyte Esterase,Cath TRACE (Negative); Nitrate,Cath Negative (Negative); Protein,Urine/Cath Negative (Negative); Specific Gravity, Urine/Cath 1.015 (1.005-1.030); Urobilinogen,Cath 0.2 EU/dl (0.2)
[2020-08-23 15:44] LABS: Amorphous Sediment,Ur/Cath 1+ /lpf; RBC,Urine/Cath Occasional # /hpf (0-3); Squamous Epithelial Ur./Cath Occasional #/hpf (0-5)
--- NOTE | 2020-08-23 17:41 | PC.NURSE ---
FAMILY ARRIVED EARLY THIS AFTERNOON. ACCORDING TO PT'S AND GRANDDAUGHTER PT HAS BEEN SICK FOR AWHILE NOW. PT HAS IMPROVED SINCE THIS MORNING. BP HAS REMAINED STABLE. SINUS LEANNE ON THE MONITOR. AT THIS TIME PT IS MORE ALERT AND ABLE TO COMMUNICATE WITH FAMILY. CODE STATUS WAS ADDRESSED WITH PT AND FAMILY. PT STATED I FEEL FAIRLY GOOD RIGHT NOW BUT IF HIS HEART WERE TO STOP HE IS TOTALLY AGAINST HAVING CHEST COMPRESSIONS AND HAVING HIS HEART SHOCKED. PT STATED HE MOST DEFINITELY DOES NOT WANT TO BE PUT ON A BREATHING MACHINE B/C HE REFUSES TO BE MISERABLE. PT ALSO STATED HE DID NOT WANT A FEEDING TUBE. PT'S , GRANDDAUGHTER AND I WERE BOTH AT BEDSIDE DURING DISCUSSION WHEN PT VOICED HE WANTED TO BE A DNR. PT ASKED TO SIGN THE PAPER. WHEN PT IS DISCHARGED FAMILY IS WANTING TO TAKE HIM HOME AND THEY ARE INTERESTED IN HOSPICE CARE. FAMILY STATED THERE WOULD BE SOMEONE WITH PT AT ALL TIMES TO HELP WITH CARE.
[2020-08-24] VITALS (16 sets, daily range): BP systolic 121–157; BP diastolic 58–79; PULSE 50–75; RESP 16–23; TEMP 36.9–38.4; O2SAT 95–100; BMI 23.7
--- NOTE | 2020-08-24 03:55 | PC.NURSE ---
Pt is A&O x3. Has not c/o any discomfort thus far. Has slept at intervals this shift. BP has remained stable. He has been NSR to Sinus [place] on telemetry. Has remained on RA this shift. Lungs noted to have coarse crackles to (L) base. No c/o soa. He is febrile this AM. Temperature in room adjusted and blankets removed from bed. F/C draining to bedside with 200 cc urine ouput. Maribel in color. Pt has 1+ edema to RUE and BLE. 2+ edema to LUE. Pt has noted fracture to LUE. No other concerns. Will continue to monitor.
--- NOTE | 2020-08-24 06:41 | HMH.ACPN2 ---
Internal Medicine - PN: Subj *Date: 08/24/20 *Time: 06:41 Interval history: Patient is without complaints this morning. Nursing staff reports patient has been more alert. Yesterday afternoon the patient changed his CODE STATUS to a DNR and he and family have requested hospice consultation. Patient had ibuprofen approximately 1 hour ago due to a fever this morning and has become choked after taking the medicine. He denies hunger Exam Vital signs and Labs for Last 24 Hours: Temp Pulse Resp BP Pulse Ox 101.2 F H 74 20 144/79 H 97 08/24/20 05:20 08/24/20 06:00 08/24/20 06:00 08/24/20 06:00 08/24/20 06:00 Laboratory Results - last 24 hr 08/23/20 10:00: Urine Color Yellow, Urine Appearance Clear, Urine pH 6.0, Ur Specific [place] 1.015, Urine Protein Negative, Urine Glucose (UA) Negative, Urine Ketones Negative, Urine Blood Trace-l, Urine Nitrate Negative, Urine Bilirubin Negative, Urine Urobilinogen 0.2, Ur Leukocyte Esterase Trace, Urine RBC Occasional, Urine WBC 3-5, Ur Squamous Epith Cells Occasional, Urine Bacteria None 08/23/20 10:18: C-Reactive Protein 129.1 H, Procalcitonin 5.28 H 08/23/20 10:18: Lactate 1.4 I & O for Last 24 hours: Intake & Output 08/21/20 08/22/20 08/23/20 08/24/20 11:59 11:59 11:59 11:59 Intake Total 560 / 560 3590 / 3590 Output Total 1000 / 1000 325 / 325 Balance -440 / -440 3265 / 3265 Weight 142 lb 3 oz 151 lb Microbiology Reports for the Last 24 Hours: Microbiology 08/22/20 23:10 Urine,Catheterized Urine Culture - Preliminary NO GROWTH AFTER 24 HOURS Narrative: Patient is more awake and alert compared to yesterday morning. He is able to answer questions appropriately. Patient is not diaphoretic. He remains ill-appearing. Lungs have some faint right-sided crackles. The seem to clear with repeated inspiration. Heart has a regular rate and rhythm. Abdomen is soft. Extremities are warm to the touch. Patient has edema of all 4 extremities Assessment and Plan (1) Acute on chronic systolic CHF (congestive heart failure) Status: Acute Category: Medical Code(s): I50.23 - Acute on chronic systolic (congestive) heart failure (2) GI malignancy Status: Acute Category: Medical Code(s): C26.9 - Malignant neoplasm of ill-defined sites within the digestive system (3) Ascending aortic aneurysm Status: Acute Category: Medical Code(s): I71.2 - Thoracic aortic aneurysm, without rupture (4) COVID-19 virus IgG antibody detected Status: Acute Category: Medical Code(s): Z01.84 - Encounter for antibody response examination (5) Generalized weakness Status: Acute Category: Medical Code(s): R53.1 - Weakness (6) Hypothyroidism Status: Acute Category: Medical Code(s): E03.9 - Hypothyroidism, unspecified (7) Parkinson's syndrome Status: Acute Category: Medical Code(s): G20 - Parkinson's disease (8) Proximal humeral fracture Status: Acute Qualifiers: Encounter type: subsequent encounter Fracture type: closed Fracture morphology: unspecified fracture morphology Laterality: left Fracture healing: with routine healing Qualified Code(s): S42.202D - Unspecified fracture of upper end of left humerus, subsequent encounter for fracture with routine healing Category: Medical Code(s): S42.209A - Unspecified fracture of upper end of unspecified humerus, initial encounter for closed fracture (9) Systolic congestive heart failure due to valvular disease Status: Acute Category: Medical Code(s): I50.20 - Unspecified systolic (congestive) heart failure; I38 - Endocarditis, valve unspecified (10) Sepsis Status: Suspected Category: Medical Code(s): A41.9 - Sepsis, unspecified organism (11) UTI (urinary tract infection) Status: Suspected Category: Medical Code(s): N39.0 - Urinary tract infection, site not specified - Assessment and plan all Dx Assessment and Dima
[2020-08-24 07:36] LABS: Basophils % 0.2 % (0.1-2.0); Eosinophils % 0.5 % (0.1-12.0); Hemoglobin 12.2 g/dL (14.1-18.0); Lymphocytes # 0.9 K/mm3 (0.7-4.5); Lymphocytes % 10.2 % (10-50); Mean Corpuscular HGB Conc 32.2 g/dL (31.8-35.4); Mean Corpuscular Hemoglobin 34.3 pg (27.0-31.2); Mean Corpuscular Volume 106.4 fl (80-94); Mean Platelet Volume 10.3 fl (7.4-10.4); Monocytes # 0.6 K/mm3 (0.1-1.0); Monocytes % 7.2 % (1.7-9.3); Neutrophils # 7.3 K/mm3 (1.8-7.8); Platelet Count 85 K/mm3 (142-424); Red Blood Count 3.57 M/mm3 (4.60-6.20); Red Cell Distribution Width 14.2 % (11.5-17.5); White Blood Count 8.9 K/mm3 (4.8-10.8)
[2020-08-24 07:44] LABS: Alanine Aminotransferase 20 U/L (12-78); Albumin Level 2.9 g/dl (3.5-5.0); Albumin/Globulin Ratio 0.7 (1.1-1.8); Alkaline Phosphatase 107 U/L (38-126); Aspartate Amino Transferase 41 U/L (17-59); Bilirubin,Total 0.7 mg/dl (0.2-1.3); Blood Urea Nitrogen 27 mg/dl (9-20); Calcium 8.4 mg/dl (8.4-10.2); Carbon Dioxide 19 mmol/L (22.0-30.0); Chloride 106 mmol/L (98-107); Creatinine Clearance Estimated 48 mL/min (50-200); Estimated Glomerular Filt Rate 54 ml/min (>60); GFR (African American) 65 ML/MIN (>60); Globulin 4.1 g/dL (1.3-3.2); Glucose 110 mg/dl (74-100); Sodium 134 mmol/L (136-145)
--- NOTE | 2020-08-24 10:08 | SW/DCPLANNER ---
Addendum entered by Ann Wagner 08/24/20 15:05: Tamela has been at [facility] to evaluate this patient. Tamela has stated that DME will be ordered to be delivered to home tonight and they could accept patient tomorrow morning at home for their services. Loni with Hospice has also stated that they do not want patient to have IV antibiotics if blood cultures are positive. I will relay all patient information to Dr Saha. Addendum entered by Ann Wagner 08/24/20 12:12: Tamela with Hospice has planned to meet with patients family at 1PM. Addendum entered by Ann Wagner 08/24/20 10:22: I have spoke with patients and she agrees with this plan. Original Note: I received a referral regarding Hospice services for this patient. Patient information has been faxed to [facility]. I have spoke with Loni at [facility]: will speak with family and arrange time to meet at [facility]. Loni will follow back up with me once she speaks with family.
--- NOTE | 2020-08-24 17:28 | PC.NURSE ---
patient has rested most of day. heart rate has been 50s most of day. occasional drops to 48. highest this shift has been in 60s. temp has been 99. took pills well with pudding and a sip of water. also noted to eat some cereal with family okay. at times patient will cough with some drinks of his tea. seems to do better when sitting up very straight. family plans for patient to go home with hospice. no complaints. this morning neuro patch placed on upper l arm. vitals have been stable.
[2020-08-25] VITALS (8 sets, daily range): BP systolic 145–157; BP diastolic 55–91; PULSE 67–80; RESP 18–36; TEMP 36.6–36.9; O2SAT 96–100; BMI 24.7
--- NOTE | 2020-08-25 05:35 | PC.NURSE ---
shift summary patient has slept on and off throughout shift. oriented to questions but talks to self and absent family members in room. patient yells out frequently at night. follows commands appropriatly. breath sounds diminished. gibson draining clear yellow urine. denies nausea, vomiting, diarrhea, soa or pain.
[2020-08-25 06:50] LABS: Basophils % 0.1 % (0.1-2.0); Eosinophils % 0.4 % (0.1-12.0); Hematocrit 36.9 % (42.0-52.0); Hemoglobin 12.1 g/dL (14.1-18.0); Lymphocytes # 0.6 K/mm3 (0.7-4.5); Lymphocytes % 6.2 % (10-50); Mean Corpuscular HGB Conc 32.9 g/dL (31.8-35.4); Mean Corpuscular Hemoglobin 34.6 pg (27.0-31.2); Mean Corpuscular Volume 105.1 fl (80-94); Mean Platelet Volume 9.2 fl (7.4-10.4); Monocytes # 0.5 K/mm3 (0.1-1.0); Monocytes % 5.4 % (1.7-9.3); Neutrophils % 88.1 % (37.0-80.0); Platelet Count 122 K/mm3 (142-424); Red Blood Count 3.51 M/mm3 (4.60-6.20); Red Cell Distribution Width 14.3 % (11.5-17.5)
--- NOTE | 2020-08-25 07:00 | HMH.DCSUM ---
General - General Admission date:: 08/23/20 Discharge date: 08/25/20 HPI HPI: 75-year-old male currently undergoing work-up for GI malignancy was brought to the hospital with approximately 3 to 4 days of fevers and malaise. Patient is unable to give much history this morning but does tell me his temperature was 100.2 at home. This has been confirmed by speaking with his who reports the patient had increasing weakness along with his fevers. She does not report any cough. His appetite has been poor. Patient had a hospitalization at this facility approximately 3 weeks ago for weakness and debility related to a left humeral fracture that is being treated nonoperatively. Patient has been seeing Dr. Tsai of the oncology service for the last 3 months due to weight loss and GI malignancy. Patient has Parkinson's disease and follows with Dr. Ritter. This morning the patient can provide very little history. Patient will respond to verbal stimulus but will quickly fall back asleep. Review of existing hospital records shows discovery of GI malignancy after a 20 to 30 pound weight loss that occurred rather rapidly. Patient is undergone endoscopic ultrasound guided biopsy that was inconclusive and surgical biopsy was recommended. Patient is undergone surgical biopsy at . The does not know results of the biopsy Hospital Course Hospital Course: Patient was admitted with a diagnosis of CHF and diuresed with Lasix. Patient has known LV dysfunction (chronic congestive heart failure) identified at patient's last admission in July. Patient had good response to Lasix. Patient never had an oxygen requirement. On the morning of the patient's condition was guarded. Patient was diaphoretic and hypotensive. Patient was given IV fluid bolus which improved patient's blood pressure and all antihypertensives were held. Patient's family was contacted as he appeared to be deteriorating. CODE STATUS was addressed and family at that time believe the patient wished to be full code. Patient has underlying GI malignancy and is recently had open biopsy of his gastric mass for identification of malignancy. During hospitalization patient change his CODE STATUS to DO NOT RESUSCITATE and hospice evaluation was requested. Patient will be picked up by hospice at discharge. Patient was thought to be septic on the morning of the . Blood and urine cultures drawn on admission have shown no bacterial growth. At discharge patient will not require IV antibiotics. Plan had been to discharge the patientto home on 08/25. Discharge was prepared when the patient developed acute worsening dyspnea. CT scan was ordered which ruled out large PE and due to motion artifact smaller PE could not be ruled out. Exam revealed worsening fluid overload/chf. Patient was given morphine and ativan for comfort. Patient on the evening of . Objective Vital signs: Temp Pulse Resp BP Pulse Ox 97.8 F 69 19 151/55 H 98 08/25/20 04:00 08/25/20 04:00 08/25/20 04:00 08/25/20 04:00 08/25/20 04:00 no acute distress - *Routine HEENT Exam Head: Present: normocephalic Eye: Present: EOMI, PERRL ENT: Present: mucous membranes moist - *Routine Respiratory Exam Present: CTA bilaterally - *Routine Cardiovascular Exam Present: RRR Results Labs on day of discharge: Labs from last 24 hours 08/24/20 08/24/20 05:40 05:40 WBC 8.9 D RBC 3.57 L Hgb 12.2 L Hct 38.0 L MCV 106.4 H MCH 34.3 H MCHC 32.2 RDW 14.2 Plt Count 85 L MPV 10.3 Neut % (Auto) 82.0 H Lymph % (Auto) 10.2 [place] % (Auto) 7.2 Eos % (Auto) 0.5 Baso % (Auto) 0.2 Neut # (Auto) 7.3 Lymph # (Auto) 0.9 [place] # (Auto) 0.6 Eos # (Auto) 0.0 Baso # (Auto) 0.0 Sodium 134 L Potassium 4.0 Chloride 106 Carbon Dioxide 19 L D Anion Gap 13.0 BUN 27 H Creatinine 1.30 H Estimated Creat Clear 48 Estimated GFR 54 L
[2020-08-25 07:04] LABS: Alanine Aminotransferase 16 U/L (12-78); Albumin Level 2.9 g/dl (3.5-5.0); Albumin/Globulin Ratio 0.7 (1.1-1.8); Alkaline Phosphatase 114 U/L (38-126); Aspartate Amino Transferase 36 U/L (17-59); Bilirubin,Total 0.8 mg/dl (0.2-1.3); Blood Urea Nitrogen 23 mg/dl (9-20); Calcium 8.4 mg/dl (8.4-10.2); Carbon Dioxide 19 mmol/L (22.0-30.0); Chloride 106 mmol/L (98-107); Creatinine Clearance Estimated 65 mL/min (50-200); Estimated Glomerular Filt Rate 73 ml/min (>60); GFR (African American) 88 ML/MIN (>60); Globulin 4.1 g/dL (1.3-3.2); Glucose 112 mg/dl (74-100); Sodium 134 mmol/L (136-145)
[2020-08-25 07:14] LABS: MANUAL DIFFERENTIAL MANUAL DIFFERENTIAL (MANUAL DIFF)
[2020-08-25 08:37] LABS: Lymphocytes % 13 % (10-50); Monocytes % 3 % (2-9); Neutrophils % 84 % (42-76); Platelet Estimate Normal; RBC Morphology Normal; Total Cells Counted 100
--- NOTE | 2020-08-25 12:02 | CT_ITS ---
PROCEDURE: CT ANGIO CHEST CLINCIAL INDICATION: cancer, acute desaturation, resp. distress COMPARISON: CT CT CHEST WO CON from 06/23/2020 CR XR CHEST PORTABLE from 08/22/2020 TECHNIQUE: IV Contrast: 70ML Isovue 370 Axial images obtained with sagittal and coronal reformats. All CT scans at the facility use one or more dose reduction, viz: automated exposure control, ma/kV adjustment per patient size (including targeted exams where dose is matched to indication, i.e. head), or iterative reconstruction technique. FINDINGS: There is fusiform dilatation of the ascending aorta measuring up to 4.9 cm. No evidence of aortic dissection. There is tortuosity of the descending thoracic aorta. Motion artifact somewhat obscures fine detail the pulmonary arteries in the mid lower lung zones. There does appear to be a filling defect within the descending branch of the right lower lobe pulmonary artery. There may be an additional filling defect within anterior basilar branch of the left lower lobe. Other smaller defects may be present however, it is difficult to determine due to the motion. No large emboli are evident. There are trace bilateral pleural effusions. Atelectatic changes are present in the lung bases. Patchy density present in the right upper lobe and may be due to an area of atelectasis or patchy infiltrate. There is mild pulmonary venous congestion suggesting mild CHF. There are mildly prominent mediastinal lymph nodes. Coronary artery calcifications are present. There is a small amount of fluid in the perihepatic and perisplenic region. Patient is tilted toward the left within the CT gantry. There is mild wedging involving T9 vertebral body which may be old. There is right-sided gynecomastia IMPRESSION: 1. Limited exam secondary to patient motion artifact. 2. Fusiform dilatation of the ascending aorta at 4.9 cm. 3. Motion artifact obscures fine detail evaluation of the pulmonary arteries. There is questionable small bilateral pulmonary emboli. No large emboli evident. 4. Trace bilateral effusions with suspected mild CHF and atelectasis or infiltrate in the right upper lobe. 5. Small amount of ascites in the upper abdomen. Dictated by: Jeffrey Alcantara MD 08/25/2020 13:34 Jeffrey Alcantara MD in [place] 08/25/2020 13:34
--- NOTE | 2020-08-25 14:45 | PC.NURSE ---
Per RN pt is going to Hospice and Pt's family at bedside wants Pt suctioned. Orally suctioned Pt for moderate amount of thin white frothy secretions, did not induce a gag. Pt tolerated well
--- NOTE | 2020-08-25 16:43 | HMH.ACPN2 ---
Internal Medicine - PN: Subj *Date: 08/25/20 *Time: 16:43 Interval history: Patient became acutely dyspneic between 11 AM and 12 PM with a drop in his O2 sats to 50%. Patient has developed rattling within the chest. Patient underwent CT scan of the chest, PE protocol to rule out acute pulmonary embolism. No large embolism was seen. Motion artifact made exam difficult for possibility of smaller embolism and the official report has been read as questionable small pulmonary embolisms. Patient was given Lasix 20 mg with 400 mL of urine output and then an additional [address] scan ruled out large PE. Patient has known LV dysfunction. He has had minimal urine output since administration of 40 mg of Lasix. Patient is also been given Levsin for secretions and Roxanol with transient improvement in his tachypnea and respiratory distress. Family was contacted and advised to come to the hospital as patient's may be imminent. Exam Vital signs and Labs for Last 24 Hours: Temp Pulse Resp BP Pulse Ox 98.2 F 76 36 H 157/81 H 100 08/25/20 11:54 08/25/20 11:54 08/25/20 11:54 08/25/20 11:54 08/25/20 14:45 Laboratory Results - last 24 hr 08/25/20 05:55: WBC 9.0, RBC 3.51 L, Hgb 12.1 L, Hct 36.9 L, MCV 105.1 H, MCH 34.6 H, MCHC 32.9, RDW 14.3, Plt Count 122 L D, MPV 9.2, Neut % (Auto) 88.1 H, Lymph % (Auto) 6.2 L, Brooke % (Auto) 5.4, Eos % (Auto) 0.4, Baso % (Auto) 0.1, Neut # (Auto) 8.0 H, Lymph # (Auto) 0.6 L, Brooke # (Auto) 0.5, Eos # (Auto) 0.0, Baso # (Auto) 0.0, Total Counted 100, Neutrophils % (Manual) 84 H, Lymphocytes % (Manual) 13, Monocytes % (Manual) 3, Platelet Estimate Normal, RBC Morphology Normal 08/25/20 05:55: Sodium 134 L, Potassium 4.0, Chloride 106, Carbon Dioxide 19 L, Anion Gap 13.0, BUN 23 H, Creatinine 1.00 D, Estimated Creat Clear 65, Estimated GFR 73, Est GFR ( Amer) 88 D, Glucose 112 H, Calcium 8.4, Total Bilirubin 0.8, AST 36, ALT 16, Alkaline Phosphatase 114, Total Protein 7.0, Albumin 2.9 L, Globulin 4.1 H, Albumin/Globulin Ratio 0.7 L I & O for Last 24 hours: Intake & Output 08/23/20 08/24/20 08/25/20 08/26/20 11:59 11:59 11:59 11:59 Intake Total 560 / 560 3590 / 3590 1015 / 1015 Output Total 1000 / 1000 325 / 325 675 / 675 Balance -440 / -440 3265 / 3265 340 / 340 Weight 142 lb 3 oz 151 lb 158 lb Microbiology Reports for the Last 24 Hours: Microbiology 08/22/20 23:10 Urine,Catheterized Urine Culture - Final NO GROWTH AFTER 48 HOURS 08/22/20 20:45 Blood Blood Culture - Preliminary NO GROWTH AFTER 48 HOURS 08/22/20 20:45 Blood Blood Culture - Preliminary NO GROWTH AFTER 48 HOURS Narrative: Patient is taking rapid shallow breaths. He has no response to verbal or tactile stimulus. Lungs have rhonchi throughout all lung mitchell. Heart has a rapid rate and rhythm. Assessment and Plan (1) Acute on chronic systolic CHF (congestive heart failure) Status: Acute Category: Medical Code(s): I50.23 - Acute on chronic systolic (congestive) heart failure (2) GI malignancy Status: Acute Category: Medical Code(s): C26.9 - Malignant neoplasm of ill-defined sites within the digestive system (3) Ascending aortic aneurysm Status: Acute Category: Medical Code(s): I71.2 - Thoracic aortic aneurysm, without rupture (4) COVID-19 virus IgG antibody detected Status: Acute Category: Medical Code(s): Z01.84 - Encounter for antibody response examination (5) Generalized weakness Status: Acute Category: Medical Code(s): R53.1 - Weakness (6) Hypothyroidism Status: Acute Category: Medical Code(s): E03.9 - Hypothyroidism, unspecified (7) Parkinson's syndrome Status: Acute Category: Medical Code(s): G20 - Parkinson's disease (8) Proximal humeral fracture Status: Acute Qualifiers: Encounter type: subsequent encounter Fracture type: alonso
--- NOTE | 2020-08-25 18:43 | HMH.DEATH ---
Pronouncement Note - Date and Time of Date of : 08/25/20 Time of : 17:45 - PCOD Preliminary cause of : Congestive heart failure - Additional Data Confirmation of : no pulse, no respirations, no heart sounds, pupils fixed and dilated Family: at bedside Attending physician: Kin Saha MD Was code activated?: No
--- NOTE | 2020-08-25 20:04 | PC.NURSE ---
Notified MD Dr. Saha this am of pt's status change in resp status,before being d/cd with hospice, he ordered morphine, a chest cta and d/cd fluids, and lasix per oct. This nurse gave as ordered and pt did seem to respond some with meds, but then did start to have dyspnea again and Dr. Saha notified and ordered roxanol and more lasix, didn't respond to second IV lasix, MD Dr. Saha came in - rounded and spoke with family, and made more med changes. Prn morphine iv, ativan and levasin given and pt did at approx 1745, ed doc, Dr. Duggan did come and pronounce. Dr. Saha made aware and family was at bedside. Pt is still here and this nurse has gave report to Katie Kendrick,RN. Also, Abraham r/o and ref number is [id number].
--- NOTE | 2020-08-25 20:27 | PC.NURSE ---
[facility] contacted.
--- NOTE | 2020-08-25 21:20 | PC.NURSE ---
Post Mortem care provided. # 18 RAC DC. #20 LFA DC. F/C DC. [facility] came per family request. Pt left floor @ 1044.
--- NOTE | 2020-08-26 08:23 | PC.NURSE ---
Did make [facility] aware that pt did pass away yesterday evening.
== END 2020-08-25 21:04 | disposition expired ==
LOC: ER 20:59 → 2ND 08-23 00:10
PROVIDERS: Admitting Provider Family Medicine; Emergency Provider Family Medicine; PCP Nurse Practitioner; Visit Provider Family Medicine
DX: I11.0 Hypertensive heart disease with heart failure (principal); I50.23 Acute on chronic systolic (congestive) heart failure; G20 Parkinson's disease; F02.80 Dementia in other diseases classified elsewhere, unspecified severity, without behavioral disturbance, psychotic disturbance, mood disturbance, and anxiety; I48.20 Chronic atrial fibrillation, unspecified; S42.202D Unspecified fracture of upper end of left humerus, subsequent encounter for fracture with routine healing; I71.2 Thoracic aortic aneurysm, without rupture; E03.9 Hypothyroidism, unspecified; R29.6 Repeated falls; Z79.01 Long term (current) use of anticoagulants; Z79.82 Long term (current) use of aspirin; Z79.899 Other long term (current) drug therapy
CPT/HCPCS: 36415; 71045; 71275; 80048; 80053; 81001; 82962; 83605; 83735; 83880; 84100; 84145; 84484; 85007; 85025; 85610; 86140; 86328; 87040; 87086; 93005; 96365; 96375; 99285; G0378; Q9967